=== PATIENT | male | born 1960 ===

== ENCOUNTER 2020-06-19 06:25 | Outpatient (REF) | payer MEDICARE, MEDICAID, SELFPAY ==
[2020-06-19 07:38] LABS: Cholesterol 197 mg/dL; HDL Cholesterol 57 mg/dL; LDL Cholesterol Calculated 111 mg/dl; Triglycerides 146 mg/dL
== END 2020-06-19 06:26 | disposition home or self-care (01) ==
LOC: HO.LAB 06:25
PROVIDERS: Visit Provider Internal Medicine
DX: I10 Essential (primary) hypertension (principal)
CPT/HCPCS: 80061

== ENCOUNTER 2022-08-10 07:39 | Outpatient (REF) | payer OTHER, SELFPAY ==
[2022-08-10 07:53] LABS: MANUAL DIFF FLAG NO
[2022-08-10 08:40] LABS: Alanine Aminotransferase 33 U/L (0-40); Albumin Level 4.6 g/dL (3.5-5.0); Alkaline Phosphatase 99 U/L (39-117); Anion Gap 15 (12-20); Aspartate Amino Transferase 21 U/L (5-37); Bilirubin Total 0.8 mg/dL (0.0-1.0); Blood Urea Nitrogen 13 mg/dL (9-16); Calcium 9.8 mg/dL (8.4-10.2); Carbon Dioxide 27 mmol/L (22-29); Chloride 104 mmol/L (96-108); Cholesterol 215 mg/dL; Estimated Glomerular Filt Rate > 60; Glucose Fasting 97 mg/dL (60-99); HDL Cholesterol 53 mg/dL; LDL Cholesterol Calculated 150 mg/dl; Potassium 4.7 mmol/L (3.3-5.1); Sodium 141 mmol/L (135-145); Total Protein 7.2 g/dL (6.5-8.0); Triglycerides 62 mg/dL
[2022-08-10 08:57] LABS: Prostate Specific Antigen Scr 0.53 ng/mL (<0.05-4.0)
[2022-08-10 09:50] LABS: Basophils Absolute Auto 0.1 X10*3/uL (0.0-0.2); Basophils Percent Auto 0.9 % (0-2); Eosinophils Absolute Auto 0.2 X10*3/uL (0.0-0.4); Eosinophils Percent Auto 2.1 % (0-4); Hematocrit 48.4 % (42.0-52.0); Hemoglobin 16.7 g/dl (14.0-18.0); Imm Gran Abs Auto 0.04 X10*3/uL (0.00-0.03); Imm Gran Pct Auto 0.5 % (0.0-0.4); Lymphocytes Absolute Auto 1.7 X10*3/uL (1.2-4.9); Lymphocytes Percent Auto 19.4 % (20-40); Mean Corpuscular HGB Conc 34.5 g/dl (31.0-36.0); Mean Corpuscular Hemoglobin 31.9 pg (27.0-33.0); Mean Corpuscular Volume 92.4 fL (80.0-98.0); Mean Platelet Volume 10.8 fL (9.4-12.4); Monocytes Absolute Auto 0.7 X10*3/uL (0.1-1.2); Monocytes Percent Auto 8.1 % (2-11); Platelet Count 245 X10*3/uL (160-400); Red Blood Count 5.24 X10*6/uL (4.60-5.80); Red Cell Distribution Width 12.9 % (11.0-16.0); White Blood Count 8.7 X10*3/uL (4.8-10.8)
== END 2022-08-10 07:40 | disposition home or self-care (01) ==
LOC: HO.LAB 07:39
PROVIDERS: PCP Internal Medicine; Visit Provider Internal Medicine
DX: Z00.00 Encounter for general adult medical examination without abnormal findings (principal); E78.5 Hyperlipidemia, unspecified; I10 Essential (primary) hypertension; Z13.0 Encounter for screening for diseases of the blood and blood-forming organs and certain disorders involving the immune mechanism; Z12.5 Encounter for screening for malignant neoplasm of prostate
CPT/HCPCS: 36415; 80053; 80061; 84153; 85025

== ENCOUNTER 2022-12-05 13:14 | Outpatient (REF) | payer OTHER, SELFPAY ==
--- NOTE | ~2022-12-05 | XR_ITS ---
EXAMINATION: XR SHOULDER, LEFT CLINICAL INFORMATION: Left shoulder pain COMPARISON: 06/07/2010 TECHNIQUE: AP external rotation, Grashey, scapular Y, and axillary views of the left shoulder. FINDINGS: There are degenerative changes in the left acromioclavicular joint and mild irregularity of the left glenohumeral joint soft tissues unremarkable. There is no fracture or subluxation seen. XR/XR shoulder LT min 2V IMPRESSION: Mild degenerative changes in the left acromioclavicular joint and glenohumeral joint.
--- NOTE | ~2022-12-05 | XR_ITS ---
EXAMINATION: XR SHOULDER, RIGHT CLINICAL INFORMATION: Pain in right shoulder COMPARISON: 12/06/2016 TECHNIQUE: AP external rotation, Grashey, scapular Y, and axillary views of the right shoulder. FINDINGS: There is narrowing and asymmetry of the right glenohumeral joint with soft tissue calcifications adjacent to the greater tuberosity most likely calcific tendinopathy. There is faint calcification of CPPD arthropathy. There is spurring of the right humerus. 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
== END 2022-12-05 13:15 | disposition home or self-care (01) ==
LOC: HO.XRAY 13:14
PROVIDERS: PCP Internal Medicine; Visit Provider Internal Medicine
DX: M25.511 Pain in right shoulder (principal); M25.512 Pain in left shoulder
CPT/HCPCS: 73030

== ENCOUNTER 2022-12-25 11:19 | Emergency (ER) | payer OTHER, SELFPAY ==
--- NOTE | ~2022-12-25 | XR_ITS ---
EXAMINATION: XR CHEST CLINICAL INFORMATION: Lateral chest pain COMPARISON: None available. TECHNIQUE: 2 views of the chest were obtained. FINDINGS: The cardiac silhouette is normal. There is mild diffuse bronchial wall thickening. There are no areas of consolidation. There are no pleural effusions or pneumothoraces. The bones and soft tissues are unremarkable for the patient's age. XR/XR chest 2V IMPRESSION: Bronchial wall thickening may be infectious and/or inflammatory in etiology.
--- NOTE | ~2022-12-25 | XR_ITS ---
EXAMINATION: XR RIBS, LEFT CLINICAL INFORMATION: Left posterior lateral pain COMPARISON: Chest x-ray on 12/25/2022 TECHNIQUE: 3 views of the left ribs were obtained. FINDINGS: Mild bronchial wall thickening. No consolidation, pneumothorax, or pleural effusion. The cardiomediastinal silhouette and pulmonary vasculature are normal. Osseous structures are unremarkable. Ribs are intact. No fractures are identified. XR/XR ribs LT 2V IMPRESSION: No osseous abnormality.
[2022-12-25 11:41] VITALS: BP 137/80; PULSE 68; RESP 16; TEMP 36.4; O2SAT 97; BMI 30.8
--- NOTE | 2022-12-25 11:41 | ED.GENADULT ---
HPI - General Adult General Chief complaint: Back Pain/Injury Stated complaint: left side pain Time Seen by Provider: 12/25/22 12:02 History of Present Illness HPI narrative: patient complains of pain in his left mid back radiating to left rib area that is worse with movement when he twisted wrong while taking a shower and felt sharp pain that is relieved by not moving and is worse when he twists or stands up or changes position or takes a deep breath He has no other chest pain no shortness of breath no fainting or feeling faint no palpitations no abdominal pain no dysuria, no recent illness no cough no sputum no nausea vomiting or diarrhea Related Data Home Medications Medication Instructions Recorded Confirmed famotidine 20 mg tablet (Pepcid) 20 mg PO DAILY 07/26/21 11/23/22 omega-3 fatty acids 1,000 mg 1,000 mg PO DAILY 07/26/21 11/23/22 capsule Previous Rx's Medication Instructions Recorded naproxen 250 mg tablet 250 mg PO BID PRN pain #90 tabs 09/14/20 cyclobenzaprine 10 mg tablet 10 mg PO TID PRN muscle spasm #30 07/26/21 tabs naproxen 500 mg tablet (Naprosyn) 500 mg PO BID PRN pain #30 tabs 07/26/21 lisinopril 10 mg tablet 10 mg PO DAILY #90 tabs 02/28/22 amitriptyline 50 mg tablet 50 mg PO DAILY #60 tabs 08/19/22 gabapentin 100 mg capsule 100 mg PO TID #90 caps 08/19/22 atorvastatin 20 mg tablet 20 mg PO DAILY #90 tabs 11/11/22 acetaminophen 500 mg tablet 1,000 mg PO QID PRN pain #30 tabs 12/25/22 cyclobenzaprine 5 mg tablet 5 mg PO TID PRN muscle spasm #14 12/25/22 tabs oxycodone 5 mg tablet 5 mg PO Q6H PRN pain #14 tabs 12/25/22 Allergies Allergy/AdvReac Type Severity Reaction Status Date / Time morphine [MORPHINE] Allergy Severe HIVES, rash Verified 11/23/22 08:34 [facility] Past Medical History Source: nursing notes reviewed Medical History (Updated 12/25/22 @ 14:15 by RYAN Mcclain) Hyperlipidemia Surgical History History of hip replacement History of surgery Family History Family History Father Diabetes Mother Diabetes Social History Social History Housing: Apartment Alcohol intake: current Alcohol intake frequency: a few times a week Alcohol type: beer and wine Patient Tobacco Use Status: Never used Tobacco Smoked in Last 30 Days: Yes e-Cigarette/Vaping Use: Never Used Second Hand Smoke Exposure: No Use of substances other than those prescribed or required for medical reasons: Yes Substance Use Type: Marijuana Substance Use Frequency: Daily Advance Directives: No Advance Directives Information Provided: Yes service: No Current occupational status: disabled Cognitive needs: Yes (cane) Hearing needs: No Vision needs: Yes (glasses) Physical Exam ED Vital Signs: Vital Signs - 24 hr 12/25/22 11:41 12/25/22 14:00 Temperature 97.5 F 97.8 F Pulse Rate 68 58 Respiratory Rate 16 18 Blood Pressure 137/80 137/68 Pulse Oximetry 97 100 Oxygen Delivery Method Room Air Room Air BMI result Body Mass Index 30.8 general appearance no distress comfortable appearing Head is normocephalic atraumatic Neck is supple and nontender The chest is clear to auscultation bilateral with full symmetric equal lung sounds no adventitious sounds The chest wall is nontender Heart no murmur Abdomen is soft nontender The back there is left mid paraspinal soft tissue tenderness as well as left posterior and lateral rib tenderness, pain is easily reproduced with movement and relieved by finding a comfortable position Skin of the back is normal, no focal bony tenderness over the spine Neuro gait and balance are normal, motor is 5/5 x4 and sensation is intact and symmetric Course Course Course Narrative: This is an RME: Additional HPI, ROS, PE not included below will be deferred to primary provider. Patient is a 62-year-old male who presents emergency department for evaluation of pain. States that 7 days ago while bathing he was reaching to cleanse himself, he developed pain to left lateral chest wall that radiates into the front. Pain has been constant since then. Made worse with breathing and movement. He is prescribed naproxen and gabapentin for his arthritis, this has not helped with his pain. Denies any precipitating injury or fall. Denies anterior chest pain, difficulty breathing, dizziness, lightheadedness, abdominal pain. Denies fevers chills or URI symptoms. patient with reproducible musculoskeletal left mid back pain radiating to the ribs that is easily reproduced with movement, has been present for 1 week, there is no pain when he is in a comfortable position but pain comes on only with certain movements and is easily reproducible Chest x-ray and left rib x-ray were negative and patient is treated for likely muscle strain with analgesics and muscle relaxer He is discharged home well-appearing ambulating easily Discharge Plan Discharge Clinical Impression: Muscle strain of left upper back Patient Disposition: Home, Self-Care Additional Instructions: x-ray of your chest and ribs did not show a fracture or any evidence of lung injury This is most likely painful muscle strain so we are treating with analgesics and muscle relaxer Follow closely with primary doctor for referral for physical therapy and any further evaluation Return to the ER any time for chest pain difficulty breathing fainting or feeling faint , abdominal pain, any worse condition or concerns Prescriptions: New acetaminophen 500 mg tablet 1,000 mg PO QID PRN (Reason: pain) Qty: 30 0RF oxycodone 5 mg tablet 5 mg PO Q6H PRN (Reason: pain) Qty: 14 0RF Rx Instructions: Partial Fill upon patient request. cyclobenzaprine 5 mg tablet 5 mg PO TID PRN (Reason: muscle spasm) Qty: 14 0RF No Action naproxen 250 mg tablet 250 mg PO BID PRN (Reason: pain) Qty: 90 8RF lisinopril 10 mg tablet 10 mg PO DAILY Qty: 90 8RF atorvastatin 20 mg tablet 20 mg PO DAILY Qty: 90 8RF omega-3 fatty acids 1,000 mg capsule 1,000 mg PO DAILY famotidine [Pepcid] 20 mg tablet 20 mg PO DAILY naproxen [Naprosyn] 500 mg tablet 500 mg PO BID PRN (Reason: pain) Qty: 30 0RF cyclobenzaprine 10 mg tablet 10 mg PO TID PRN (Reason: muscle spasm) Qty: 30 2RF amitriptyline 50 mg tablet 50 mg PO DAILY Qty: 60 8RF gabapentin 100 mg capsule 100 mg PO TID Qty: 90 3RF
[2022-12-25 14:00] VITALS: BP 137/68; PULSE 58; RESP 18; TEMP 36.6; O2SAT 100
== END 2022-12-25 14:24 | disposition home or self-care (01) ==
PROVIDERS: Emergency Provider Emergency Medicine; PCP Internal Medicine
DX: M54.50 Low back pain, unspecified (principal); R07.81 Pleurodynia; Z79.899 Other long term (current) drug therapy
CPT/HCPCS: 71046; 71100; 99284

== ENCOUNTER 2023-01-13 07:25 | Outpatient (REF) | payer OTHER, SELFPAY ==
[2023-01-13 08:27] LABS: Cholesterol 217 mg/dL; HDL Cholesterol 67 mg/dL; LDL Cholesterol Calculated 128 mg/dl; Triglycerides 114 mg/dL
== END 2023-01-13 07:26 | disposition home or self-care (01) ==
LOC: HO.LAB 07:25
PROVIDERS: PCP Internal Medicine; Visit Provider Internal Medicine
DX: E78.5 Hyperlipidemia, unspecified (principal)
CPT/HCPCS: 36415; 80061

== ENCOUNTER 2023-02-08 08:26 | Outpatient (AMB) | payer OTHER, MEDICAID, SELFPAY ==
--- NOTE | 2023-02-08 08:40 | MHC.PC.OV ---
Vital Signs 02/08/23 08:41 Height 5 ft 6 in Weight 184 lb 6 oz BMI 29.8 BP 140/80 H Blood Pressure Location Lt brachial Position Sitting Pulse 68 Pulse Source Pulse Oximeter Pulse Oximetry (%) 98 Oxygen Delivery Method Room Air Intake Visit Reasons: 3 month follow up HTN Intake Note: Patient is here to follow up on HTN. Gleason Gear Generator Required: No It Software Engineer: Not Required per policy Accompanied by: Self / Same As Patient Allergies morphine [MORPHINE] Allergy (Severe, Verified 02/08/23 08:41) HIVES, rash Medication List - Last Reconciled 02/08/23 by Ivan Biggs MD acetaminophen 1,000 mg (2 x 500 mg) PO QID PRN amitriptyline 50 mg PO DAILY atorvastatin 20 mg PO DAILY famotidine (Pepcid) 20 mg PO DAILY gabapentin 100 mg PO TID lisinopril 10 mg PO DAILY naproxen 250 mg PO BID PRN Tobacco use date assessed: 02/08/23 Dental Screening Dental Screen Date: 02/08/23 Did you have a dental visit in the last 12 months?: No Did you have a dental problem in the last 6 months where you did not have access to dental care?: No Was dental information given to patient?: No HPI 3 month follow up HTN HPI Details HTN hyperlipidemia and chronic pain syndrome; stable on rx; compliant [facility] Medical History (Updated 02/08/23 @ 09:14 by Ivan Biggs MD) Hyperlipidemia Surgical History History of hip replacement History of surgery Family History Father Diabetes Mother Diabetes Social History Housing: Apartment Alcohol intake: current Alcohol intake frequency: a few times a week Alcohol type: beer and wine Patient Tobacco Use Status: Never used Tobacco e-Cigarette/Vaping Use: Never Used Second Hand Smoke Exposure: No Substance Use Type: Marijuana service: No Current occupational status: disabled Cognitive needs: Yes (cane) Hearing needs: No Vision needs: Yes (glasses) Questionnaire Thrive Questionnaire Date Thrive assessed: 08/19/22 ALISSON-7 AMB Questionnaire ALISSON-7 Date ALISSON - 7 assessed: 08/19/22 Source: Developed by Drs. Martín Castro, Swapna Sinclair, Dougie Flores and colleagues, with an educational luis from [employer]. Review of Systems Const Denies chills, Denies headache(s) and Denies weight loss ENT Denies headache(s) Card Denies chest pain, Denies syncope, Denies irregular heart rhythm and Denies dyspnea Resp Denies chest congestion, Denies cough and Denies dyspnea GI Denies abdominal pain, Denies change in stool character, Denies nausea and Denies vomiting Musc Denies deformity and Denies joint swelling Neuro Denies syncope and Denies headache(s) Physical exam (Primary Care) Vital Signs: Last Vital Signs Pulse 68 02/08/23 08:41 BP 140/80 H 02/08/23 08:41 Pulse Ox 98 02/08/23 08:41 Oxygen Delivery Method Room Air 02/08/23 08:41 BMI result Body Mass Index 29.8 Tobacco/Smoking Status: Tobacco use Status Tobacco use date assessed 02/08/23 02/08/23 08:47 Patient Tobacco Use Status Never used Tobacco 02/08/23 08:47 e-Cigarette/Vaping Use Never Used 02/08/23 08:47 Thrive Assessment: Date of Thrive Assessment Date Thrive assessed 08/19/22 02/08/23 08:47 Const General: cooperative, comfortable and no acute distress Resp Effort & Inspection: normal respiratory effort Auscultation: clear to auscultation bilaterally Percussion: percussion normal Cardio Jugular venous distension: no JVD Rate: regular rate Rhythm: regular rhythm GI Inspection: Yes normal to inspection Assessment and Plan Assessment & Plan (1) Hypertension: Code(s): I10 - Essential (primary) hypertension Plan: stable; smae rx (2) Hyperlipidemia: Code(s): E78.5 - Hyperlipidemia, unspecified Plan: stable; same rx (3) Chronic idiopathic pain syndrome: Code(s): G89.29 - Other chronic pain Plan: increase gabapentin Orders: Orders Comprehensive [place]. Panel Fast Today N28.9 - Disorder of kidney and ureter, unspecified Lipid Panel Today E78.5 - Hyperlipidemia, unspecified Complete Blood Count Auto Diff Today D64.9 - Anemia, unspecified Medications: New gabapentin 300 mg PO TID 90 caps 3RF Refilled acetaminophen 1,000 mg (2 x 500 mg) PO QID PRN 30 tabs 0RF pain lisinopril 10 mg PO DAILY 90 tabs 8RF naproxen 250 mg PO BID PRN 90 tabs 8RF pain Discontinued gabapentin Discontinued Reason: Doctor's Order 100 mg PO TID 90 caps 3RF Coding Level of Care Code Est Pt Level 4 (62447) Diagnoses Hypertension I10 Hyperlipidemia E78.5 Chronic idiopathic pain syndrome G89.29
[2023-02-08 08:41] VITALS: BP 140/80; PULSE 68; O2SAT 98; BMI 29.8
== END 2023-02-08 09:22 | disposition home or self-care (01) ==
PROVIDERS: PCP Internal Medicine; Visit Provider Internal Medicine
DX: I10 Essential (primary) hypertension (principal); E78.5 Hyperlipidemia, unspecified; G89.29 Other chronic pain
CPT/HCPCS: 99214

== ENCOUNTER 2023-05-11 08:42 | Outpatient (AMB) | payer OTHER, MEDICAID, SELFPAY ==
[2023-05-11 08:44] VITALS: BP 132/68; PULSE 85; O2SAT 98; BMI 30.2
--- NOTE | 2023-05-11 08:44 | A.OFFPC_ITS ---
Vital Signs 05/11/23 08:44 Height 5 ft 6 in Weight 187 lb BMI 30.2 BP 132/68 Blood Pressure Location Lt brachial Position Sitting Pulse 85 Pulse Source Pulse Oximeter Pulse Oximetry (%) 98 Oxygen Delivery Method Room Air Intake Visit Reasons: Annual exam Heating Engineer Required: No Director Of Business Development: Not Required per policy Accompanied by: Self / Same As Patient Allergies morphine [MORPHINE] Allergy (Severe, Verified 05/11/23 08:45) HIVES, rash Medication List - Last Reconciled 05/11/23 by Ivan Biggs MD amitriptyline 50 mg PO DAILY atorvastatin 20 mg PO DAILY famotidine (Pepcid) 20 mg PO DAILY gabapentin 300 mg PO TID lisinopril 10 mg PO DAILY naproxen 250 mg PO BID PRN Tobacco use date assessed: 02/08/23 Dental Screening Dental Screen Date: 05/11/23 Did you have a dental visit in the last 12 months?: No Did you have a dental problem in the last 6 months where you did not have access to dental care?: No Was dental information given to patient?: Patient has dentist HPI Annual exam HPI Details HTN hyperlipidemia and chronic back pain; doing well on rx PFSH Medical History Hyperlipidemia Surgical History History of hip replacement History of surgery Family History Father Diabetes Mother Diabetes Social History Housing: Apartment Alcohol intake: current Alcohol intake frequency: a few times a week Alcohol type: beer and wine Patient Tobacco Use Status: Never used Tobacco e-Cigarette/Vaping Use: Never Used Second Hand Smoke Exposure: No Substance Use Type: Marijuana service: No Current occupational status: disabled Cognitive needs: Yes (cane) Hearing needs: No Vision needs: Yes (glasses) Questionnaire PHQ-9 Over the last 2 weeks, how often have you been bothered by any of the following problems? 1. Little interest or pleasure in doing things: several days 2. Feeling down, depressed, or hopeless: several days 3. Trouble falling or staying asleep, or sleeping too much: several days 4. Feeling tired or having little energy: several days 5. Poor appetite or overeating: not at all 6. Feeling bad about yourself - or that you are a failure or have let yourself or your family down: not at all 7. Trouble concentrating on things, such as reading the newspaper or watching television: not at all 8. Moving or speaking so slowly that other people could have noticed. Or the opposite - being so fidgety or restless that you have been moving around a lot more than usual: not at all 9. Thoughts that you would be better off or of hurting yourself in some way: not at all Total score: 4 Depression Screening Interpretation: Positive Depression Screening Follow-up: Existing condition Depression Screening Done: Yes [id number] - PHQ-9 Billing: Yes Source: Developed by Drs. Martín Castro, Swapna Sinclair, Dougei Flores and colleagues, with an educational lius from [employer]. Thrive Questionnaire Date Thrive assessed: 08/19/22 AUDIT C Alcohol Use Questionnaire (AUDIT-C) 1. How often do you have a drink containing alcohol?: Never Total Score: 0 Score Reviewed/Action Taken: Yes ALISSON-7 AMB Questionnaire ALISSON-7 Date ALISSON - 7 assessed: 08/19/22 Source: Developed by Drs. Martín Castro, Swapna Sinclair, Dougie Flores and colleagues, with an educational luis from [employer]. Review of Systems Const Denies chills, Denies fatigue, Denies headache(s) and Denies weight loss Eyes Denies change in vision, Denies diplopia and Denies eye pain ENT Denies vertigo, Denies dizziness, Denies headache(s) and Denies nasal discharge Card Denies chest pain, Denies rapid heart rate and Denies dyspnea on exertion Resp Denies chest congestion, Denies cough, Denies pain with cough and Denies dyspnea on exertion GI Denies abdominal pain, Denies hematochezia and Denies change in bowel habits Musc Denies myalgias, Denies arthralgias and Denies joint swelling Skin/Breast Denies lesions and Denies unusual bruising Neuro Denies vertigo, Denies dizziness, Denies headache(s) and Denies focal weakness Endo Denies fatigue Physical exam (Primary Care) Vital Signs: Last Vital Signs Pulse 85 05/11/23 08:44 BP 132/68 05/11/23 08:44 Pulse Ox 98 05/11/23 08:44 Oxygen Delivery Method Room Air 05/11/23 08:44 BMI result Body Mass Index 30.2 Tobacco/Smoking Status: Tobacco use Status Tobacco use date assessed 02/08/23 05/11/23 08:45 Patient Tobacco Use Status Never used Tobacco 05/11/23 08:45 e-Cigarette/Vaping Use Never Used 05/11/23 08:45 PHQ-9: PHQ-9 Score PHQ-9: Total score 4 05/11/23 09:09 Depression Screening Interpretation: Positive Depression Screening Follow-up: Existing condition Thrive Assessment: Date of Thrive Assessment Date Thrive assessed 08/19/22 05/11/23 08:45 Const General: cooperative, healthy appearing and no acute distress Orientation/consciousness: oriented to person, oriented to place and oriented to time HENMT Head: Yes normal to inspection, Yes normocephalic and Yes atraumatic Mouth: Normal oral and palatal mucosa present and tongue normal Throat: Yes posterior oropharynx normal and Yes uvula midline Eyes General: appearance normal, both eyes and all related structures Neck Neck: Yes normal visual inspection, Yes full ROM and Yes no lymphadenopathy Thyroid: Thyroid normal Carotids: normal carotid upstroke Chest Chest palpation & inspection: normal inspection of the chest Resp Effort & Inspection: normal respiratory effort and able to speak in complete sentences Auscultation: clear to auscultation bilaterally Cardio Jugular venous distension: no JVD Palpation: normal PMI Rate: regular rate Rhythm: regular rhythm Heart sounds: S1 normal heart sound present and S2 normal heart sound present GI Inspection: Yes normal to inspection Palpation (GI): Soft to palpation and No hepatosplenomegaly present Auscultation: normal bowel sounds General: Yes no CVA tenderness Back/Spine/Pelvis Back: no CVA tenderness Skin General skin exam: no rashes or lesions noted Neuro General: oriented to person, oriented to place and oriented to time Extrem General: Yes normal to inspection and Yes full ROM Office Procedures Flu Questionnaire Does the patient have a severe egg allergy?: No Does the patient have severe life threatening allergies?: No Does the patient have a fever or illness today?: No Has the patient ever had Guillain-[place] Syndrome?: No Has the patient ever had any past reaction to a flu shot?: No Immunizations flu vacc [id number] 6mos up(PF) 60 mcg(15 mcgx4)/0.5 mL IM syringe Performing Provider: Ivan Biggs MD [facility] Administered by: LAURA Cabrales on 05/11/23 09:12 Dose Route Admin Location Dispensed Lot Number Expiration Date NDC Quality Review Trainer 0.5 mL IM Right Deltoid 0.5 mL [id number] 12/31/23 [id number] [email or web address] VIS Given Date VIS Provided VIS Publication Date 05/11/23 Single Vaccine 21 Eligibility Eligibility Date Funding Source Not [facility] Eligible 05/11/23 Private Assessment and Plan Assessment & Plan (1) Physical exam: Code(s): Z00.00 - Encounter for general adult medical examination without abnormal findings Plan: labs; colonoscopy (2) Hyperlipidemia: Code(s): E78.5 - Hyperlipidemia, unspecified Plan: stable; same rx (3) Hypertension: Code(s): I10 - Essential (primary) hypertension Plan: stable; same rx (4) Chronic idiopathic pain syndrome: Code(s): G89.29 - Other chronic pain Plan: stable; same rx Orders: Orders Influenza [id number] Immunization Today Z23 - Encounter for immunization Complete Blood Count Auto Diff Today D64.9 - Anemia, unspecified Prostate Specific Antigen Scr Today Z00.00 - Encounter for general adult medical examination without abnormal findings Lipid Panel Today E78.5 - Hyperlipidemia, unspecified Comprehensive [place]. Panel Fast Today N28.9 - Disorder of kidney and ureter, unspecified Referrals Gastroenterology Referral Z12.11 - Encounter for screening for malignant neoplasm of colon Coding Level of Care Code Est Pt Prev Care 40-64y(86173) Diagnoses Physical exam Z00.00 Hyperlipidemia E78.5 Hypertension I10 Chronic idiopathic pain syndrome G89.29
== END 2023-05-11 09:14 | disposition home or self-care (01) ==
PROVIDERS: Visit Provider Internal Medicine
DX: Z00.00 Encounter for general adult medical examination without abnormal findings (principal); E78.5 Hyperlipidemia, unspecified; I10 Essential (primary) hypertension; G89.29 Other chronic pain; Z23 Encounter for immunization
CPT/HCPCS: 90471; 90686; 99396

== ENCOUNTER 2023-09-18 10:16 | Outpatient (AMB) | payer MEDICARE, SELFPAY ==
[2023-09-18 10:26] VITALS: BP 136/70; PULSE 72; O2SAT 99; BMI 31.6
--- NOTE | 2023-09-18 10:26 | A.OFFPC_ITS ---
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: Not Required per policy Accompanied by: Self / Same As Patient Allergies morphine [MORPHINE] Allergy (Severe, Verified 09/18/23 10:27) HIVES, rash Medication List - Last Reconciled 09/19/23 by Ivan Biggs MD amitriptyline 50 mg PO DAILY atorvastatin 20 mg PO DAILY famotidine (Pepcid) 20 mg PO DAILY gabapentin 300 mg PO TID lisinopril 10 mg PO DAILY naproxen 250 mg PO BID PRN Tobacco use date assessed: 09/18/23 Dental Screening Dental Screen Date: 09/18/23 Did you have a dental visit in the last 12 months?: Yes Did you have a dental problem in the last 6 months where you did not have access to dental care?: No Was dental information given to patient?: Patient has dentist HPI 6 month F/U HPI Details HTN and hyperlip on rx; compliant [facility] Medical History Hyperlipidemia Surgical History History of hip replacement History of surgery Family History Father Diabetes Mother Diabetes Social History Housing: Apartment Alcohol intake: current Alcohol intake frequency: a few times a week Alcohol type: beer and wine Patient Tobacco Use Status: Never used Tobacco e-Cigarette/Vaping Use: Never Used Second Hand Smoke Exposure: No Substance Use Type: Marijuana service: No Current occupational status: disabled Cognitive needs: Yes (cane) Hearing needs: No Vision needs: Yes (glasses) Questionnaire PHQ-9 Over the last 2 weeks, how often have you been bothered by any of the following problems? 1. Little interest or pleasure in doing things: several days 2. Feeling down, depressed, or hopeless: several days 3. Trouble falling or staying asleep, or sleeping too much: several days 4. Feeling tired or having little energy: several days 5. Poor appetite or overeating: not at all 6. Feeling bad about yourself - or that you are a failure or have let yourself or your family down: not at all 7. Trouble concentrating on things, such as reading the newspaper or watching television: not at all 8. Moving or speaking so slowly that other people could have noticed. Or the opposite - being so fidgety or restless that you have been moving around a lot more than usual: not at all 9. Thoughts that you would be better off or of hurting yourself in some way: not at all Total score: 4 Depression Screening Interpretation: Positive Depression Screening Follow-up: Existing condition Depression Screening Done: Yes 97667 - PHQ-9 Billing: Yes Source: Developed by Drs. Martín Castro, Swapna Sinclair, Dougie Flores and colleagues, with an educational luis from [employer]. Thrive Questionnaire Date Thrive assessed: 09/18/23 I am a: Patient What is your living situation today?: I have a steady place to live Within the past 12 months, did the food you bought not last and you didn't have the money to get more?: Never true Within the past 12 months, did you worry whether your food would run out before you got money to buy more?: Never true Do you have trouble paying for medicines?: No Do you have trouble getting transportation to medical appointments?: No Do you have trouble paying your heating and electricity bill?: No Do you have trouble taking care of your child, family member or friend?: No Do you have trouble with day-to-day activities such as bathing, preparing meals, shopping, managing finances, etc.?: No Are you currently unemployed and looking for a job?: No Are you interested in more education?: No Please select the resources that you would like help with: None THRIVE Score: 0 AUDIT C Alcohol Use Questionnaire (AUDIT-C) 1. How often do you have a drink containing alcohol?: Never Total Score: 0 Score Reviewed/Action Taken: Yes ALISSON-7 AMB Questionnaire ALISSON-7 Date ALISSON - 7 assessed: 09/18/23 Feeling nervous, anxious, or on edge: 0 = Not at all Not being able to stop or control worryin = Not at all Worrying too much about different things: 0 = Not at all Trouble relaxin = Not at all Being so restless that it is hard to sit still: 0 = Not at all Becoming easily annoyed or irritable: 0 = Not at all Feeling afraid as if something awful might happen: 0 = Not at all Total ALISSON-7 score (0-4 normal; 5-9 mild; 10-14 moderate; 15-21 severe): 0 Source: Developed by Drs. Martín Castro, Swapna Sinclair, Dougie Flores and colleagues, with an educational luis from [employer]. ALISSON-7 Assessment Billing ALISSON-7 Assessment Tool: ALISSON-7 Assessment 09653 Review of Systems Const Denies chills, Denies headache(s) and Denies weight loss ENT Denies headache(s) Card Denies chest pain, Denies syncope, Denies irregular heart rhythm and Denies dyspnea Resp Denies chest congestion, Denies cough and Denies dyspnea GI Denies abdominal pain, Denies change in stool character, Denies nausea and Denies vomiting Musc Denies deformity and Denies joint swelling Neuro Denies syncope and Denies headache(s) Physical exam (Primary Care) Vital Signs: Last Vital Signs Pulse 72 09/18/23 10:26 BP 136/70 09/18/23 10:26 Pulse Ox 99 09/18/23 10:26 Oxygen Delivery Method Room Air 09/18/23 10:26 BMI result Body Mass Index 31.6 Tobacco/Smoking Status: Tobacco use Status Tobacco use date assessed 09/18/23 09/18/23 10:28 Patient Tobacco Use Status Never used Tobacco 09/18/23 10:28 e-Cigarette/Vaping Use Never Used 09/18/23 10:28 PHQ-9: PHQ-9 Score PHQ-9: Total score 4 09/18/23 10:28 Depression Screening Interpretation: Positive Depression Screening Follow-up: Existing condition Thrive Assessment: Date of Thrive Assessment Date Thrive assessed 09/18/23 09/18/23 10:28 Const General: cooperative, comfortable, no acute distress and alert Neck Neck: Yes no lymphadenopathy Thyroid: Thyroid normal Resp Effort & Inspection: normal respiratory effort Auscultation: clear to auscultation bilaterally Percussion: percussion normal Cardio Jugular venous distension: no JVD Palpation: normal PMI Rate: regular rate Rhythm: regular rhythm Heart sounds: S1 normal heart sound present and S2 normal heart sound present GI Inspection: Yes normal to inspection Palpation (GI): No hepatosplenomegaly present Skin General skin exam: no rashes or lesions noted Extrem General: Yes no clubbing, cyanosis or edema Assessment and Plan Assessment & Plan (1) Hypertension: Code(s): I10 - Essential (primary) hypertension Plan: stable; same rx (2) Hyperlipidemia: Code(s): E78.5 - Hyperlipidemia, unspecified Plan: stable; same rx Medications: Refilled gabapentin 300 mg PO TID 90 caps 3RF naproxen 250 mg PO BID PRN 90 tabs 8RF pain amitriptyline 50 mg PO DAILY 60 tabs 8RF Coding Level of Care Code Est Pt Level 3 (49465) Diagnoses Hypertension I10 Hyperlipidemia E78.5 Additional Codes ALISSON-7 Assessment Billing - ALISSON-7 Assessment Tool: ALISSON-7 Assessment 45087 ([id number])
== END 2023-09-18 10:41 | disposition home or self-care (01) ==
PROVIDERS: PCP Internal Medicine; Visit Provider Internal Medicine
DX: I10 Essential (primary) hypertension (principal); E78.5 Hyperlipidemia, unspecified
CPT/HCPCS: 99214

== ENCOUNTER 2023-12-27 07:34 | Outpatient (REF) | payer MEDICARE, MEDICAID, SELFPAY ==
[2023-12-27 07:49] LABS: MANUAL DIFF FLAG NO
[2023-12-27 08:15] LABS: Basophils Percent Auto 0.4 % (0-2); Eosinophils Absolute Auto 0.1 X10*3/uL (0.0-0.4); Eosinophils Percent Auto 0.8 % (0-4); Hematocrit 47.2 % (42.0-52.0); Hemoglobin 15.7 g/dl (14.0-18.0); Imm Gran Abs Auto 0.04 X10*3/uL (0.00-0.03); Imm Gran Pct Auto 0.4 % (0.0-0.4); Lymphocytes Absolute Auto 1.9 X10*3/uL (1.2-4.9); Lymphocytes Percent Auto 19.3 % (20-40); Mean Corpuscular HGB Conc 33.3 g/dl (31.0-36.0); Mean Corpuscular Hemoglobin 31.2 pg (27.0-33.0); Mean Corpuscular Volume 93.8 fL (80.0-98.0); Mean Platelet Volume 10.9 fL (9.4-12.4); Monocytes Absolute Auto 0.9 X10*3/uL (0.1-1.2); Monocytes Percent Auto 8.9 % (2-11); Neutrophils Absolute Auto 7.1 x10*3/uL (2.0-8.3); Neutrophils Percent Auto 70.2 % (45-73); Platelet Count 248 X10*3/uL (160-400); Red Blood Count 5.03 X10*6/uL (4.60-5.80); Red Cell Distribution Width 13.3 % (11.0-16.0)
[2023-12-27 08:42] LABS: Alanine Aminotransferase 32 U/L (0-40); Albumin Level 4.6 g/dL (3.5-5.0); Alkaline Phosphatase 124 U/L (39-117); Anion Gap 15 (12-20); Aspartate Amino Transferase 21 U/L (5-37); Bilirubin Total 1.1 mg/dL (0.0-1.0); Blood Urea Nitrogen 15 mg/dL (9-16); Calcium 9.9 mg/dL (8.4-10.2); Carbon Dioxide 30 mmol/L (22-29); Chloride 102 mmol/L (96-108); Cholesterol 197 mg/dL (<200); Estimated Glomerular Filt Rate > 60; Glucose Fasting 105 mg/dL (60-99); HDL Cholesterol 49 mg/dL (>40); LDL Cholesterol Calculated 134 mg/dL (<100); Potassium 4.9 mmol/L (3.3-5.1); Sodium 142 mmol/L (135-145); Total Protein 7.7 g/dL (6.5-8.0); Triglycerides 71 mg/dL (<150)
[2023-12-27 09:11] LABS: Prostate Specific Antigen Scr 0.44 ng/mL (<0.05-4.0)
== END 2023-12-27 07:35 | disposition home or self-care (01) ==
LOC: HO.LAB 07:34
PROVIDERS: PCP Internal Medicine; Visit Provider Internal Medicine
DX: Z00.00 Encounter for general adult medical examination without abnormal findings (principal); E78.5 Hyperlipidemia, unspecified; N28.9 Disorder of kidney and ureter, unspecified; D64.9 Anemia, unspecified
CPT/HCPCS: 36415; 80053; 80061; 84153; 85025

== ENCOUNTER 2024-01-01 06:24 | Day surgery (SDC) | payer MEDICARE, MEDICAID, SELFPAY ==
--- NOTE | 2023-12-29 09:17 | P.CONAN_ITS ---
Documented by User: Renetta Dunn NP 12/29/23 09:17 HPI - Anesthesia Eval Consult details Narrative: 63yo M for Colonoscopy [facility] Active Problems Active Problems: All Active Problems Chronic idiopathic pain syndrome (Acute) Hypertension (Acute) Physical exam (Acute) Shoulder pain (Acute) Hyperlipidemia (Acute) Past Medical History Medical History Hyperlipidemia Family History Family History Father Diabetes Mother Diabetes Surgical History Surgical History H/O shoulder surgery History of hip replacement History of surgery Social History Social History Housing: Apartment Alcohol intake: current Alcohol intake frequency: a few times a week Alcohol type: beer and wine Patient Tobacco Use Status: Never used Tobacco e-Cigarette/Vaping Use: Never Used Second Hand Smoke Exposure: No Substance Use Type: Marijuana service: No Current occupational status: disabled Cognitive needs: Yes (cane) Hearing needs: No Vision needs: Yes (glasses) Meds Allergies Allergy/AdvReac Type Severity Reaction Status Date / Time morphine [MORPHINE] Allergy Severe HIVES, rash Verified 01/01/24 06:50 Home Medications ?Medication ?Instructions ?Recorded ?Confirmed ?Last Taken ?Type famotidine 20 mg tablet (Pepcid) 20 mg PO DAILY 07/26/21 01/01/24 12/31/23 History Assessment and Plan Assessment Anesthesia Assessment: Chart Reviewed Documented by User: Kaila Maciel MD 01/01/24 08:22 [facility] Active Problems Active Problems: All Active Problems Chronic idiopathic pain syndrome (Acute) Hypertension (Acute) Physical exam (Acute) Shoulder pain (Acute) Hyperlipidemia (Acute) New LBBB. Patient states was told some time ago that EKG was abnormal but never followed up Chest pain- some months ago. Resolved after stopping naprosyn. Never sought care Denies CAMILO but snores Daily marijuana. Last yesterday Some nausea and vomiting yestreday with prep. None today Past Medical History Medical History Hyperlipidemia Family History Family History Father Diabetes Mother Diabetes Family history of problems with anesthesia: No Surgical History Surgical History H/O shoulder surgery History of hip replacement History of surgery History of Problems with Anesthesia: No Social History Social History Housing: Apartment Alcohol intake: current Alcohol intake frequency: a few times a week Alcohol type: beer and wine Patient Tobacco Use Status: Never used Tobacco e-Cigarette/Vaping Use: Never Used Second Hand Smoke Exposure: No Substance Use Type: Marijuana service: No Current occupational status: disabled Cognitive needs: Yes (cane) Hearing needs: No Vision needs: Yes (glasses) Meds Allergies Allergy/AdvReac Type Severity Reaction Status Date / Time morphine [MORPHINE] Allergy Severe HIVES, rash Verified 01/01/24 06:50 Home Medications ?Medication ?Instructions ?Recorded ?Confirmed ?Last Taken ?Type famotidine 20 mg tablet (Pepcid) 20 mg PO DAILY 07/26/21 01/01/24 12/31/23 History Exam Height,Weight and Vital Signs: Height 5 ft 7 in Weight 84.912 kg Vital Signs Temp Pulse Resp BP Pulse Ox O2 Del Method 01/01/24 07:02 97.3 F 85 18 149/86 H 98 Room Air Airway Mallampati Class: II TM Dist: >3cm Neck ROM: Full Loose/Missing/Broken Teeth: Yes (Many loose teeth. Some missing teeth. Denies broken) Heart: RRR Lungs: CTAB Assessment and Plan Assessment Anesthesia Assessment: Anesthesia Plan Discussed and Chart Reviewed Final Anesthetic Review Family History of Problems with Anesthesia: No History of Problems with Anesthesia: No NPO: Yes ASA Class: III Final Preanesthetic Review: No Changes in Pt Med Stat, Meds/Allgs Chart Reviewed, Consent Obtained/Reviewed and Anes Risks/Benef Reviewed Patient Risk: Intermediate Procedure Risk: Low Assessment/Block/Sedation in SS: Assess/Block/Sedation-SS Anesthetic Plan Anesthetic Plan: GA, TIVA and Other (Discussed EKG findings with patient and stressed importance of following up with PCP/Cardiology. Patient states that he will make an appointment) Disposition: Standard PACU
--- NOTE | 2024-01-01 | ECG_ITS ---
Test Reason : New LBBB Blood Pressure : / mmHG Vent. Rate : 069 BPM Atrial Rate : 069 BPM P-R Int : 198 ms QRS Dur : 186 ms QT Int : 482 ms P-R-T Axes : 034 -09 158 degrees QTc Int : 516 ms Normal sinus rhythm Possible Left atrial enlargement Non-specific intra-ventricular conduction block Left ventricular hypertrophy with repolarization abnormality ( R in aVL , Sokolow-Caceres , [place] product , Romhilt-Ramos ) Abnormal ECG When compared with ECG of 31-MAY-2011 09:38, QRS duration has increased QT has lengthened Referred By: Kaila Maciel Electronically Signed By:DELILAH FERRERA
[2024-01-01 06:43] VITALS: BMI 29.3
[2024-01-01 07:02] VITALS: BP 149/86; PULSE 85; RESP 18; TEMP 36.3; O2SAT 98
[2024-01-01] MEDS: Lactated Ringers 1,000 ML 100 ML IVCONT (07:03)
[2024-01-01 08:21] VITALS: BP 101/63; PULSE 72; RESP 16; TEMP 36.1; O2SAT 97
--- NOTE | 2024-01-01 08:22 | PM.OP ---
Brief Operative Note Date of Service: 01/01/24 Pre-op diagnosis: Screening Post-op diagnosis: other (Colon polyp) Procedure: Colonoscopy to the cecum and TI with hot snare polypectomy Surgeon: Martín Brown MD Anesthesia: MAC Was an Swimming Coach Or Instructor used for this Procedure?: No Estimated blood loss (mL): 0 Pathology: other (A. Polyp at 15cm) Condition: stable Disposition: PACU
[2024-01-01 08:36] VITALS: BP 114/71; PULSE 63; RESP 14; O2SAT 96
[2024-01-01 08:51] VITALS: BP 133/73; PULSE 73; RESP 20; TEMP 36.6; O2SAT 99
--- NOTE | 2024-01-01 09:22 | OP_ITS ---
DATE OF SERVICE: 01/01/2024 SURGEON: Martín Brown MD INDICATIONS: The patient presents for evaluation of colorectal cancer screening. Full consent was obtained from him for this, including risks of bleeding and perforation. PREOPERATIVE DIAGNOSIS: Colorectal cancer screening. POSTOPERATIVE DIAGNOSIS: PROCEDURE PERFORMED: Colonoscopy to the cecum and terminal ileum with hot snare polypectomy. ESTIMATED BLOOD LOSS: COMPLICATIONS: ANESTHESIA: Medication used; monitored anesthesia care. ASSISTANTS: SPECIMENS: POSTOPERATIVE DIAGNOSES: Colorectal cancer screening, colon polyp, diverticulosis, and internal hemorrhoids. DESCRIPTION OF PROCEDURE: The patient was placed in left lateral decubitus position. The digital rectal exam revealed some external hemorrhoids. The Olympus videopediatric colonoscope was entered into the rectum and advanced easily to the cecum. Once in the cecum, I did identify normal-appearing cecal pouch with appendiceal orifice and a normal-appearing ileocecal valve. The terminal ileum was cannulated and appeared normal. Scope was withdrawn back in the colon. The entire cecum and ileocecal valve appeared normal. The scope was slowly withdrawn assessing all mucosal surfaces carefully. Preparation was excellent. At 15 cm, was an approximately 12 mm polyp on a short stalk, which was removed by hot snare polypectomy and recovered by withdrawing it on the tip of the scope. The scope was advanced back to the polypectomy site, which appeared clean, without any sign of residual polyp nor bleeding. I did not visualize any other polyps, colitis, nor angiodysplasia. There was a mild amount of sigmoid diverticulosis. In the rectum, scope was retroflexed visualizing internal hemorrhoids, but no other pathology. The rectal mucosa appeared normal. Scope was straightened and withdrawn from the patient. He tolerated the procedure well and was returned to the recovery area in stable condition. IMPRESSION: 1. Colon polyp. 2. Diverticulosis. 3. Internal hemorrhoids. PLAN: The results of the pathology will be checked. I would recommend a repeat colonoscopy in 5 years presuming as a tubular adenoma. He was advised not to use any aspirin and NSAIDs for 1 week. MD LOBO Shipman/WILLIAM / [id number]
== END 2024-01-01 09:55 | disposition home or self-care (01) ==
PROVIDERS: PCP Internal Medicine; Visit Provider Internal Medicine
PROC: 0DJD8ZZ Inspection of Lower Intestinal Tract, Via Natural or Artificial Opening Endoscopic (ICD-10-PCS; CPT 45378; principal; 2024-01-01 07:30)
DX: Z12.11 Encounter for screening for malignant neoplasm of colon (principal); D12.7 Benign neoplasm of rectosigmoid junction; K57.30 Diverticulosis of large intestine without perforation or abscess without bleeding; K64.8 Other hemorrhoids; K64.4 Residual hemorrhoidal skin tags; I10 Essential (primary) hypertension; E78.5 Hyperlipidemia, unspecified; G89.29 Other chronic pain; Z79.899 Other long term (current) drug therapy; Z79.02 Long term (current) use of antithrombotics/antiplatelets
CPT/HCPCS: 45385; 88305; 93005; J2704

== ENCOUNTER → 2024-01-01 08:45 | Outpatient (BNV) | payer MEDICARE, MEDICAID, SELFPAY | PROVIDERS: PCP Internal Medicine; Visit Provider Internal Medicine | DX: R94.31 Abnormal electrocardiogram [ECG] [EKG] (principal) | CPT/HCPCS: 93010 ==

== ENCOUNTER 2024-01-05 11:41 | Outpatient (AMB) | payer MEDICARE, SELFPAY ==
[2024-01-05 11:46] VITALS: BP 124/70; PULSE 78; O2SAT 98; BMI 29.8
--- NOTE | 2024-01-05 11:46 | A.OFFPC_ITS ---
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 Accompanied by: Self / Same As Patient Allergies morphine [MORPHINE] Allergy (Severe, Verified 01/05/24 11:46) HIVES, rash Medication List - Last Reconciled 01/05/24 by Ivan Biggs MD amitriptyline 50 mg PO DAILY atorvastatin 20 mg PO DAILY famotidine (Pepcid) 20 mg PO DAILY gabapentin 300 mg PO TID lisinopril 10 mg PO DAILY Tobacco use date assessed: 09/18/23 Dental Screening Dental Screen Date: 09/18/23 HPI Follow Up HPI Details hyperlipidemia on rx; doing well and compliant [facility] Medical History Hyperlipidemia Surgical History H/O shoulder surgery History of hip replacement History of surgery Family History Father Diabetes Mother Diabetes Social History Housing: Apartment Alcohol intake: current Alcohol intake frequency: a few times a week Alcohol type: beer and wine Patient Tobacco Use Status: Never used Tobacco e-Cigarette/Vaping Use: Never Used Second Hand Smoke Exposure: No Substance Use Type: Marijuana service: No Current occupational status: disabled Cognitive needs: Yes (cane) Hearing needs: No Vision needs: Yes (glasses) Questionnaire Thrive Questionnaire Date Thrive assessed: 09/18/23 ALISSON-7 AMB Questionnaire ALISSON-7 Date ALISSON - 7 assessed: 09/18/23 Source: Developed by Drs. Martín Castro, Swapna Sinclair, Dougie Flores and colleagues, with an educational luis from [employer]. Review of Systems Const Denies chills, Denies headache(s) and Denies weight loss ENT Denies headache(s) Card Denies chest pain, Denies syncope, Denies irregular heart rhythm and Denies dyspnea Resp Denies chest congestion, Denies cough and Denies dyspnea GI Denies abdominal pain, Denies change in stool character, Denies nausea and Denies vomiting Musc Denies deformity and Denies joint swelling Neuro Denies syncope and Denies headache(s) Physical exam (Primary Care) Vital Signs: Last Vital Signs Pulse 78 01/05/24 11:46 BP 124/70 01/05/24 11:46 Pulse Ox 98 01/05/24 11:46 Oxygen Delivery Method Room Air 01/05/24 11:46 BMI result Body Mass Index 29.8 Tobacco/Smoking Status: Tobacco use Status Tobacco use date assessed 09/18/23 01/05/24 11:47 Patient Tobacco Use Status Never used Tobacco 01/05/24 11:47 e-Cigarette/Vaping Use Never Used 01/05/24 11:47 Thrive Assessment: Date of Thrive Assessment Date Thrive assessed 09/18/23 01/05/24 11:47 Const General: cooperative, comfortable, no acute distress and alert Neck Neck: Yes no lymphadenopathy Thyroid: Thyroid normal Resp Effort & Inspection: normal respiratory effort Auscultation: clear to auscultation bilaterally Percussion: percussion normal Cardio Jugular venous distension: no JVD Palpation: normal PMI Rate: regular rate Rhythm: regular rhythm Heart sounds: S1 normal heart sound present and S2 normal heart sound present GI Inspection: Yes normal to inspection Palpation (GI): No hepatosplenomegaly present Skin General skin exam: no rashes or lesions noted Extrem General: Yes no clubbing, cyanosis or edema Assessment and Plan Assessment & Plan (1) Hyperlipidemia: Code(s): E78.5 - Hyperlipidemia, unspecified Plan: stable; same rx Orders: Orders Lipid Panel Today Z13.220 - Encounter for screening for lipoid disorders Coding Level of Care Code Est Pt Level 3 (45809) Diagnoses Hyperlipidemia E78.5
== END 2024-01-05 11:58 | disposition home or self-care (01) ==
PROVIDERS: PCP Internal Medicine; Visit Provider Internal Medicine
DX: E78.5 Hyperlipidemia, unspecified (principal)
CPT/HCPCS: 99213

== ENCOUNTER 2024-05-15 09:11 | Outpatient (AMB) | payer MEDICAID, SELFPAY ==
[2024-05-15 09:15] VITALS: BP 136/76; PULSE 78; O2SAT 98; BMI 28.7
--- NOTE | 2024-05-15 09:15 | A.OFFPC_ITS ---
Vital Signs 05/15/24 09:15 Height 5 ft 7 in Weight 183 lb BMI 28.7 BP 136/76 Blood Pressure Location Lt brachial Position Sitting Pulse 78 Pulse Source Pulse Oximeter Pulse Oximetry (%) 98 Oxygen Delivery Method Room Air Intake Visit Reasons: Annual Exam Picture Hanger Required: No Accompanied by: Self / Same As Patient Allergies morphine [MORPHINE] Allergy (Severe, Verified 05/15/24 09:15) HIVES, rash Medication List - Last Reconciled 05/15/24 by Ivan Biggs MD amitriptyline 50 mg PO DAILY atorvastatin 20 mg PO DAILY carvedilol 3.125 mg PO BID famotidine (Pepcid) 20 mg PO DAILY gabapentin 300 mg PO TID lisinopril 10 mg PO DAILY Tobacco use date assessed: 09/18/23 Dental Screening Dental Screen Date: 09/18/23 HPI Annual Exam HPI Details HTN and hyperlipidemia on rx; doing well FOR[facility]LY [facility], [facility] Medical History Hyperlipidemia Surgical History H/O shoulder surgery History of hip replacement History of surgery Family History Father Diabetes Mother Diabetes Social History Housing: Apartment Alcohol intake: current Alcohol intake frequency: a few times a week Alcohol type: beer and wine Patient Tobacco Use Status: Never used Tobacco Tobacco use type: Cigarette e-Cigarette/Vaping Use: Never Used Second Hand Smoke Exposure: No Substance Use Type: Marijuana service: No Current occupational status: disabled Cognitive needs: Yes (cane) Hearing needs: No Vision needs: Yes (glasses) Questionnaire PHQ-9 Over the last 2 weeks, how often have you been bothered by any of the following problems? 1. Little interest or pleasure in doing things: nearly every day 2. Feeling down, depressed, or hopeless: several days 3. Trouble falling or staying asleep, or sleeping too much: several days 4. Feeling tired or having little energy: several days 5. Poor appetite or overeating: nearly every day 6. Feeling bad about yourself - or that you are a failure or have let yourself or your family down: more than half the days 7. Trouble concentrating on things, such as reading the newspaper or watching television: nearly every day 8. Moving or speaking so slowly that other people could have noticed. Or the opposite - being so fidgety or restless that you have been moving around a lot more than usual: nearly every day 9. Thoughts that you would be better off or of hurting yourself in some way: several days Total score: 18 Depression Screening Interpretation: Positive Depression Screening Done: Yes 17632 - PHQ-9 Billing: Yes Source: Developed by Drs. Martín Castro, Swapna Sinclair, Dougie Flores and colleagues, with an educational luis from [employer]. Thrive Questionnaire Date Thrive assessed: 05/15/24 I am a: Patient What is your living situation today?: I have a steady place to live Within the past 12 months, did the food you bought not last and you didn't have the money to get more?: Sometimes True Within the past 12 months, did you worry whether your food would run out before you got money to buy more?: Sometimes True Do you have trouble paying for medicines?: No Do you have trouble getting transportation to medical appointments?: No Do you have trouble paying your heating and electricity bill?: I choose not to answer this question Do you have trouble taking care of your child, family member or friend?: I choose not to answer this question Do you have trouble with day-to-day activities such as bathing, preparing meals, shopping, managing finances, etc.?: Yes Are you currently unemployed and looking for a job?: No Are you interested in more education?: No Please select the resources that you would like help with: Care for elder or disabled Currently or been in a relationship where the following occur: I choose not to answer THRIVE Score: 2 AUDIT C Alcohol Use Questionnaire (AUDIT-C) 1. How often do you have a drink containing alcohol?: 2-4 times a month 2. How many drinks containing alcohol do you have on a typical day when you are drinking?: 1 or 2 3. How often do you have six or more drinks on one occasion?: Never Total Score: 2 ALISSON-7 AMB Questionnaire ALISSON-7 Date ALISSON - 7 assessed: 05/15/24 Feeling nervous, anxious, or on edge: 3 = Nearly every day Not being able to stop or control worryin = Nearly every day Worrying too much about different things: 3 = Nearly every day Trouble relaxin = Nearly every day Being so restless that it is hard to sit still: 3 = Nearly every day Becoming easily annoyed or irritable: 2 = More than half the days Feeling afraid as if something awful might happen: 1 = Several days Total ALISSON-7 score (0-4 normal; 5-9 mild; 10-14 moderate; 15-21 severe): 18 Source: Developed by Drs. Martín Castro, Swapna Sinclair, Dougie Flores and colleagues, with an educational luis from [employer]. ALISSON-7 Assessment Billing ALISSON-7 Assessment Tool: ALISSON-7 Assessment 95616 Review of Systems Const Denies chills, Denies fatigue, Denies headache(s) and Denies weight loss Eyes Denies change in vision, Denies diplopia and Denies eye pain ENT Denies vertigo, Denies dizziness, Denies headache(s) and Denies nasal discharge Card Denies chest pain, Denies rapid heart rate and Denies dyspnea on exertion Resp Denies chest congestion, Denies cough, Denies pain with cough and Denies dyspnea on exertion GI Denies abdominal pain, Denies hematochezia and Denies change in bowel habits Musc Denies myalgias, Denies arthralgias and Denies joint swelling Skin/Breast Denies lesions and Denies unusual bruising Neuro Denies vertigo, Denies dizziness, Denies headache(s) and Denies focal weakness Endo Denies fatigue Physical exam (Primary Care) Vital Signs: Last Vital Signs Pulse 78 05/15/24 09:15 BP 136/76 05/15/24 09:15 Pulse Ox 98 05/15/24 09:15 Oxygen Delivery Method Room Air 05/15/24 09:15 BMI result Body Mass Index 28.7 Tobacco/Smoking Status: Tobacco use Status Tobacco use date assessed 09/18/23 05/15/24 09:20 Patient Tobacco Use Status Never used Tobacco 05/15/24 09:20 Tobacco use type Cigarette 05/15/24 09:20 e-Cigarette/Vaping Use Never Used 05/15/24 09:20 PHQ-9: PHQ-9 Score PHQ-9: Total score 18 05/15/24 09:20 Depression Screening Interpretation: Positive Thrive Assessment: Date of Thrive Assessment Date Thrive assessed 05/15/24 05/15/24 09:20 Currently or been in a relationship where the following occur: I choose not to answer Const General: cooperative, healthy appearing and no acute distress Orientation/consciousness: oriented to person, oriented to place and oriented to time HENMT Head: Yes normal to inspection, Yes normocephalic and Yes atraumatic Mouth: Normal oral and palatal mucosa present and tongue normal Throat: Yes posterior oropharynx normal and Yes uvula midline Eyes General: appearance normal, both eyes and all related structures Neck Neck: Yes normal visual inspection, Yes full ROM and Yes no lymphadenopathy Thyroid: Thyroid normal Carotids: normal carotid upstroke Chest Chest palpation & inspection: normal inspection of the chest Resp Effort & Inspection: normal respiratory effort and able to speak in complete sentences Auscultation: clear to auscultation bilaterally Cardio Jugular venous distension: no JVD Palpation: normal PMI Rate: regular rate Rhythm: regular rhythm Heart sounds: S1 normal heart sound present and S2 normal heart sound present GI Inspection: Yes normal to inspection Palpation (GI): Soft to palpation and No hepatosplenomegaly present Auscultation: normal bowel sounds General: Yes no CVA tenderness Back/Spine/Pelvis Back: no CVA tenderness Skin General skin exam: no rashes or lesions noted Neuro General: oriented to person, oriented to place and oriented to time Extrem General: Yes normal to inspection and Yes full ROM Coding Level of Care Code Est Pt Prev Care 40-64y(55149) Diagnoses Physical exam Z00.00 Hypertension I10 Hyperlipidemia E78.5 Additional Codes ALISSON-7 Assessment Billing - ALISSON-7 Assessment Tool: ALISSON-7 Assessment 43782 ([id number]) PHQ-9 - 38304 - PHQ-9 Billing: Yes ([id number]) Assessment & Plan Assessment & Plan (1) Physical exam: Code(s): Z00.00 - Encounter for general adult medical examination without abnormal findings Category: Medical Plan: do labs (2) Hypertension: Code(s): I10 - Essential (primary) hypertension Category: Medical Plan: stable; same rx (3) Hyperlipidemia: Code(s): E78.5 - Hyperlipidemia, unspecified Category: Medical Plan: stable; same rx Orders: Orders Complete Blood Count Auto Diff Today Z13.0 - Encounter for screening for diseases of the blood and blood-forming organs and certain disorders involving the immune mechanism Lipid Panel Today Z13.220 - Encounter for screening for lipoid disorders Prostate Specific Antigen Scr Today Z00.00 - Encounter for general adult medical examination without abnormal findings Comprehensive [place]. Panel Fast Today Z13.9 - Encounter for screening, unspecified
== END 2024-05-15 09:39 | disposition home or self-care (01) ==
PROVIDERS: PCP Internal Medicine; Visit Provider Internal Medicine
DX: Z00.00 Encounter for general adult medical examination without abnormal findings (principal); I10 Essential (primary) hypertension; E78.5 Hyperlipidemia, unspecified

== ENCOUNTER → 2024-05-15 09:11 | Outpatient (BNVA) | payer MEDICARE, MEDICAID, SELFPAY | PROVIDERS: PCP Internal Medicine; Visit Provider Internal Medicine | DX: Z00.00 Encounter for general adult medical examination without abnormal findings (principal); I10 Essential (primary) hypertension; E78.5 Hyperlipidemia, unspecified | CPT/HCPCS: 96127; 99396 ==

== ENCOUNTER 2024-08-15 14:08 | Outpatient (AMB) | payer MEDICARE, MEDICAID, SELFPAY ==
--- OUTSIDE RECORDS SUMMARY | 2024-08-15 14:11 | XMS_ITS | Encounter Summary ---
Author Organization [employer] Address [address] [place] [address] Care Team Providers Care Veterinary Anatomist Name Role Phone Unavailable Primary Care Provider Unavailabl e Reason for Visit * Reason Comments Dental Exam Dental Pain Encounter Details Date Type Department Care Team (Late st Contact Info) Description 07/16/2024 11:30 AM EST Office Visit [facility] [address] [place] [address] UriarteJohnathon evanswandy [address] [place] [address] Social History Tobacco Use Types Packs/Day Years Used Date Smoking Tobacco: Never Smokeless Tobacco: Never Sex and Gender Information Value Date Recorded Sex Assigned at Male 05/02/2022 10:17 AM EDT Legal Sex Male 10:17 AM EDT Gender Identity Male 05/02/2022 10:17 AM EDT Sexual Orientation Don't know 05/02/2022 10 :17 AM EDT documented as of this encounter Last Filed Vital Signs Vital Sign Reading Time Taken Comments Blood Pressure 138/76 07/16/2024 11:17 AM EST Pulse - - Temperature - - Respiratory Rate - - Oxygen Saturation - - Inhaled Oxygen Concentration - - Weight - - Height - - Body Mass Index - - documented in this encounter Progress Notes * Godwin Uriarte - 07/16/2024 11:30 AM EST Images from the original note were not included. Dental procedures in this visit D0140 - LIMITED ORAL EVALUATION - PROBLEM FOCUSED (Completed) Service provider: Godwin Uriarte Billing provider: Godwin Uriarte D0330 - PANORAMIC RADIOGRAPHIC IMAGE (Completed) Service provider: Godwin Uriarte Billing provider: Godwin Uriarte D9450 - CASE PRESENTATION, DETAILED AND EXTENSIVE TREATMENT PLANNING (Completed) Service provider: Godwin Uriarte Billing provider: Godwin Uriarte Patient ID: Yonatan Jimenez is a 63 y.o. male. Time Out: Timeout Date: 07/16/24, Timeout Time: 1116 (pano emergency exam) Location: [facility] Tooth: LR Procedure: Exam and X-rays Verified the above with patient, paperhanger assistant, and provider. Confirmed via patient's chart, intraorally and by radiographs. Roads Superintendent: not applicable Chief Complaint Patient presents with Dental Exam Dental Pain Medical Hx: Vitals: Blood pressure 138/76. Past Medical History: Diagnosis Date Anxiety Heart problem Medications: Outpatient Encounter Medications as of 07/16/2024 Medication Sig Dispense Refill acetaminophen (Tylenol 8 Hour) 650 MG ER tablet Take 1 tablet (650 mg) by mouth every 8 (eight) hours if needed for moderate pain for up to 10 days. Do not crush, chew, or split. 15 tablet 0 amitriptyline (Elavil) 50 MG tablet Take 50 mg by mouth Once per day. amoxicillin (Amoxil) 500 MG capsule Take 1 capsule (500 mg) by mouth every 8 (eight) hours for 7 days. 21 capsule 0 carvedilol (Coreg) 3.125 MG tablet Take 3.125 mg by mouth with breakfast and with evening meal. chlorhexidine (Peridex) 0.12 % solution Use 15 mL in the mouth or throat if needed (for mouthwash 15 ml for 30 seconds, swish and spit) for up to 14 days. 473 mL 0 famotidine (Pepcid) 20 MG tablet Take 20 mg by mouth. lisinopril 10 MG tablet Take 10 mg by mouth Once per day. No facility-administered encounter medications on file as of 07/16/2024. 63 y/o male presents for an exam seen by Dr. Godwin Uriarte, DMD. Chief Complaint: I have pain in lower right back tooth since 2 weeks Pt stated that pt went to [facility] and got medications and pt has completed antibiotic course but pt is still experiencing some sensitivity. Medical History: Patient does not report any changes in health issues that could alter the Treatment Plan. Medical consult / medical clearance needed: no [place]: Pain: #1(mild) Allergies: Reviewed in EHR Medications: Reviewed in EHR Cancer screening: Extra-oral: WNL Intraoral: WNL Extra-oral examination TMJ Deviation - No Clicking - No Tenderness - No Facial symmetry - WNL Lymph nodes - WNL Cheeks - WNL Intraoral examination Soft tissues - WNL Palate - WNL Tongue - WNL Buccal mucosa - WNL Floor of mouth - WNL Vestibules - WNL Glands - WNL Duct area - WNL Oropharynx - WNL Radiographs X-rays taken on: PANO taken today Discussion: -Findings, risks, benefits and alternatives discussed with pt. -Reviewed radiograph taken today with pt. -Pointed out areas of bone loss. -Discussed sequelae of bacteria on gingiva and underlying bone. Recommended regular recalls. Advised increased frequency of brushing and flossing. -Upon exam, mild redness, swelling with grade II mobility evident clinically. -Radiographically, generalized advanced bone loss evident. -Pt was recommended extraction of #30, #31, #[address] Hannah on 07/08/24 and pt is aware of it. -Pt's appointment was scheduled in today in [facility] on 08/14/24. -OHI reviewed. Emphasis was laid on maintaining good oral hygiene regimen at home along with regular visits to dentist. -Pt understood, was satisfied with our conversation and agreed with tx plan; dismissed in good condition. -All questions answered. TMJ/Occlusal - TMJ is within normal limits. Oral Cancer Risk - low Oral Hygiene Instruction Provided - Yes Perio risk - high Oral Hygiene Instructions: [place] two times daily, modified reeves technique, Floss daily, Electric toothbrush, Soft bristle toothbrush, [place] Tongue. NV: extractions Seismograph Operator Helper: Lorraine Rogers Dentist: Dr. Godwin Uriarte, DMD documented in this encounter Plan of Treatment Not on file documented as of this encounter Procedures Procedure Name Priority Date/Time Associated Diagnosis Comments PANORAMIC RADIOGRAPHIC IMAGE Routine 07/16/2024 11:30 AM EST LIMITED ORAL EVALUATION - PROBLEM FOCUSED Routine 07/16/2024 11:30 AM EST CASE PRESENTATION, DETAILED AND EXTENSIVE TREATMENT PLANNING Routine 07/16/2024 11:30 AM EST documented in this encounter Visit Diagnoses Not on filedocumented in this encounter
--- OUTSIDE RECORDS SUMMARY | 2024-08-15 14:11 | XMS_ITS | Encounter Summary ---
Author Organization [facility] [employer] [facility] Address [address] [place] [address] Care Team Providers Care Reinstatement Clerk Name Role Phone Unavailable Primary Care Provider Unavailabl e Reason for Visit * Reason Comments Extraction Encounter Details Date Type Department Care Team (Late st Contact Info) Description 08/14/2024 8:00 AM EST Office Visit [facility] [address], [place] [phone] Andrae Jack DDS [address], [place] [id number] Periodontal disease (Primary Dx) Social History Tobacco Use Types Packs/Day Years Used Date Smoking Tobacco: Never Smokeless Tobacco: Never Alcohol Use Standard Drinks/Week Comments Defer 0 (1 standard drink = 0.6 oz pur e alcohol) Sex and Gender Information Value Date Recorded Sex Assigned at Male 05/02/2022 10:17 AM EDT Legal Sex Male 10:17 AM EDT Gender Identity Male 05/02/2022 10:17 AM EDT Sexual Orientation Don't know 05/02/2022 10 :17 AM EDT documented as of this encounter Last Filed Vital Signs Vital Sign Reading Time Taken Comments Blood Pressure 140/86 08/14/2024 8:09 AM EST Pulse - - Temperature - - Respiratory Rate - - Oxygen Saturation - - Inhaled Oxygen Concentration - - Weight - - Height - - Body Mass Index - - documented in this encounter Progress Notes * Andrae Jack DDS - 08/14/2024 8:00 AM EST .a * Andrae Jack DDS - 08/14/2024 8:00 AM EST Patient ID: Yonatan Jmienez is a 63 y.o. male. Time Out: Timeout Date: 08/14/24 (ext on tooth#30 , 31 , 32), Timeout Time: 0809 Location: [facility] Tooth: Mand[place], #30, #31, and #32 Only, per pt's request Procedure: Extraction Verified the above with patient, delivery driver assistant, and provider. Confirmed via patient's chart, intraorally and by radiographs. Brewery Cellar Worker: not applicable Chief Complaint Patient presents with Extraction Medical Hx: Vitals: Blood pressure (!) 140/86. Past Medical History: Diagnosis Date Anxiety Gastroesophageal reflux disease 07/08/2024 Heart problem Hypertension 07/08/2024 Osteoarthritis 07/08/2024 Medications: Outpatient Encounter Medications as of 08/14/2024 Medication Sig Dispense Refill amitriptyline (Elavil) 50 MG tablet Take 50 mg by mouth Once per day. atorvastatin (Lipitor) 20 MG tablet Take 20 mg by mouth Once per day. carvedilol (Coreg) 3.125 MG tablet Take 3.125 mg by mouth with breakfast and with evening meal. famotidine (Pepcid) 20 MG tablet Take 20 mg by mouth. gabapentin (Neurontin) 300 MG capsule Take 300 mg by mouth 3 times daily. lisinopril 10 MG tablet Take 10 mg by mouth Once per day. [] chlorhexidine (Peridex) 0.12 % solution Use 15 mL in the mouth or throat if needed (for mouthwash 15 ml for 30 seconds, swish and spit) for up to 14 days. 473 mL 0 [] ibuprofen 600 MG tablet Take 1 tablet (600 mg) by mouth every 6 (six) hours if needed formild pain for up to 10 days. 15 tablet 0 No facility-administered encounter medications on file as of 08/14/2024. Consent Obtained: The risks, benefits, indications, potential complications, and alternatives were explained to the patient and informed consent was obtained with good understanding. Treatment Provided: Dental procedures in this visit D7140 - EXTRACTION, ERUPTED TOOTH OR EXPOSED ROOT (ELEVATION AND/OR FORCEPS REMOVAL) 30 (Completed) Service provider: Andrae Jack DDS Billing provider: Andrae Jack DDS D7140 - EXTRACTION, ERUPTED TOOTH OR EXPOSED ROOT (ELEVATION AND/OR FORCEPS REMOVAL) 31 (Completed) Service provider: Andrae Jack DDS Billing provider: Andrae Jack DDS D7140 - EXTRACTION, ERUPTED TOOTH OR EXPOSED ROOT (ELEVATION AND/OR FORCEPS REMOVAL) 32 (Completed) Service provider: Andrae Jack DDS Billing provider: Andrae Jack DDS D9450 - ADJUNCTIVE GENERAL SERVICES - PROFESSIONAL VISITS - CASE PRESENTATION, SUBSEQUENT TO DETAILED AND EXTENSIVE TREATMENT PLANNING (Completed) Service provider: Andrae Jack DDS Billing provider: Andrae Jack DDS Diagnosis: Periodontal disease Extra time needed for a better reading on BP and obtaining profound local anesthesia Topical: 20% Benzocaine Anesthesia: 2% Lidocaine (Xylocaine) w/ 1:100,000 epinephrine Number of Cartridges: 3 Injection Type: Inferior alveolar nerve block, Long buccal nerve block, and Mental nerve block Confirmed profound anesthesia. Pharyngeal curtain and bite block placed. Removed tooth with elevators and forceps. Apices intact. Surgical Extraction: Yes, #30,31,32 Socket curetted & irrigated with sterile water. Compressed alveolar bone. Sutures: Chromic Gut All adjacent teeth intact. Hemostasis achieved. Complications: None. Only it takes extra time to get Yonatan numb . Pt states having analgesics at home. Written and verbal post-op instructions given. Patient discharged in stable condition; ambulatory, alert, and oriented. NV: F/U as needed / Cont. [employer] Manager: Acacia Lucero Dentist: Andrae Jack DDS documented in this encounter Plan of Treatment Not on file documented as of this encounter Procedures Procedure Name Priority Date/Time Associated Diagnosis Comments 32 EXTRACTION, ERUPTED TOOTH OR EXPOSED ROOT (ELEVATION/FORCEPS REMOVAL) Routine 08/14/2024 8:00 AM EST 31 EXTRACTION, ERUPTED TOOTH OR EXPOSED ROOT (ELEVATION/FORCEPS REMOVAL) Routine 08/14/2024 8:00 AM EST 30 EXTRACTION, ERUPTED TOOTH OR EXPOSED ROOT (ELEVATION/FORCEPS REMOVAL) Routine 08/14/2024 8:00 AM EST CASE PRESENTATION, DETAILED AND EXTENSIVE TREATMENT PLANNING Routine 08/14/2024 8:00 AM EST documented in this encounter Visit Diagnoses Diagnosis Periodontal disease- Primary Unspecified gingival and periodontal disease documented in this encounter
--- OUTSIDE RECORDS SUMMARY | 2024-08-15 14:11 | XMS_ITS | Clinical Summary ---
Author Organization [employer] Address [address] [facility] [address] [place] [address] Care Team Providers Care Dairy Helper Name Role Phone Unavailable Primary Care Provider Unavailabl e Allergies Active Allergy Reactions Criticality Noted Date Comments Morphine 08/31/2017 Other Reaction(s): Acne Medications amitriptyline (Elavil) 50 MG tablet Take 50 mg by mouth Once per day. Active carvedilol (Coreg) 3.125 MG tablet Take 3.125 mg by mouth with breakfast and with evening meal. 4 Active famotidine (Pepcid) 20 MG tablet Take 20 mg by mouth. 1 Active lisinopril 10 MG tablet Take 10 mg by mouth Once per day. Active atorvastatin (Lipitor) 20 MG tablet Take 20 mg by mouth Once per day. Active gabapentin (Neurontin) 300 MG capsule Take 300 mg by mouth 3 times daily. Active chlorhexidine (Peridex) 0.12 % solution Use 15 mL in the mouth or throat if needed (for mouthwash 15 ml for 30 seconds, swish and spit) for up to 14 days. 473 mL 5 07/22/19 25 acetaminophen (Tylenol 8 Hour) 650 MG ER tablet Take 1 tablet (650 mg) by mouth every 8 (eight) hours if needed for moderate pain for up to 10 days. Do not crush, chew, or split. 15 tablet 5 07/18/19 25 amoxicillin (Amoxil) 500 MG capsule Take 1 capsule (500 mg) by mouth every 8 (eight) hours for 7 days. 21 capsule 5 07/16/19 25 chlorhexidine (Peridex) 0.12 % solution Use 15 mL in the mouth or throat if needed (for mouthwash 15 ml for 30 seconds, swish and spit) for up to 14 days. 473 mL 5 08/12/19 25 amoxicillin (Amoxil) 500 MG capsule Take 1 capsule (500 mg) by mouth every 8 (eight) hours for 7 days. 21 capsule 5 08/05/19 25 ibuprofen 600 MG tablet Take 1 tablet (600 mg) by mouth every 6 (six) hours if needed for mild pain for up to 10 days. 15 tablet 5 08/08/19 25 Active Problems Problem Noted Date Diagnosed Date Periodontal disease 08/14/2024 Anxiety 07/08/2024 Depressive disorder 07/08/2024 Gastroesophageal reflux disease 07/08/2024 Hyperlipidemia 07/08/2024 Hypertension 07/08/2024 Obesity 07/08/2024 Osteoarthritis 07/08/2024 Prediabetes 07/08/2024 Encounters Date Type Department Care Team Description 08/14/2024 8:00 AM EST Office Visit [facility] [address] [place] [address] Andrae Jack DDS Periodontal disease (Primary Dx) 07/29/2024 8:00 AM EST Office Visit [facility] [address] [place] [address] Ara Abdullahi DDS Encounter for dental examination (Primary Dx); Chronic periodontal disease; Dental calculus; Dental plaque 07/16/2024 11:30 AM EST Office Visit [facility] [address] [place], [place] [id number] Godwin Uriarte 07/08/2024 1:00 PM EST Office Visit [facility] [address] [place] [address] Ara Abdullahi DDS Periodontal disease (Primary Dx) from Last 3 Months Immunizations Name Administration Dates Next Due Moderna Covid-19 Vaccine 6+ Bivalent 08/05/2022 Social History Tobacco Use Types Packs/Day Years Used Date Smoking Tobacco: Never Smokeless Tobacco: Never Tobacco Cessation:Counseling Given: Not Answered Alcohol Use Standard Drinks/Week Comments Defer 0 (1 standard drink = 0.6 oz pur e alcohol) Sex and Gender Information Value Date Recorded Sex Assigned at Male 05/02/2022 10:17 AM EDT Legal Sex Male 10:17 AM EDT Gender Identity Male 05/02/2022 10:17 AM EDT Sexual Orientation Don't know 05/02/2022 10 :17 AM EDT Last Filed Vital Signs Vital Sign Reading Time Taken Comments Blood Pressure 140/86 08/14/2024 8:09 AM EST Pulse - - Temperature - - Respiratory Rate - - Oxygen Saturation - - Inhaled Oxygen Concentration - - Weight - - Height - - Body Mass Index - - Plan of Treatment Health Maintenance Due Date Last Done Comments CT Colonography 1961 Colonoscopy 1961 Colorectal Cancer Screening 1961 Depression Screening 1961 Diabetes: Hemoglobin A1C 1961 FIT DNA/Cologuard 1961 FIT 1961 FOBT 1961 HIV Screening 1961 Lipid Panel 1961 SDOH Screening 1961 Sigmoidoscopy 1961 Alcohol/Substance Use Screening 1973 Hepatitis C Screening 11/01/1979 Dental Prophylaxis 08/14/2021 02/10/2021, 0 08/31/2017, 12/22/2016, Additional history exists Dental X-Ray: Bitewings 02/11/2022 02/11/20 21, 09/22/2017, 05/25/2016 Zoster Vaccines (2 of 2) 06/30/2024 05/05/2024 Dental Oral Exam 01/27/2025 07/29/2024, 05/2021, 09/22/2017, Additional history exists Tobacco Screening 08/14/2025 08/14/2024 DTaP/Tdap/Td Vaccines (2 - Td or Tdap) 06/09/2026 06/09/2016 Dental X-Ray: Full Mouth 07/17/2027 025, 02/10/2021, 05/25/2016 RSV Patients and Patients Aged 60 years or older (1 - 1-dose 75+ series) 2036 COVID-19 Vaccine Completed 04/01/2024, 08/2022, 07/29/2021, Additional history exists Influenza Vaccine Completed 04/01/2024, , 06/11/2021 Pneumococcal Vaccine: 50+ Years Completed 05/05/2024 HIB Vaccines Aged Out No longer eligi ble based on patient's age to complete this topic HPV Vaccines Aged Out No longer eligi ble based on patient's age to complete this topic Hepatitis A Vaccines Aged Out No long er eligible based on patient's age to complete this topic Hepatitis B Vaccines Aged Out No long er eligible based on patient's age to complete this topic IPV Vaccines Aged Out No longer eligi ble based on patient's age to complete this topic Meningococcal Vaccine Aged Out No kareem jessie eligible based on patient's age to complete this topic RSV under 20 months Aged Out No longe r eligible based on patient's age to complete this topic Rotavirus Vaccines Aged Out No longer eligible based on patient's age to complete this topic Procedures Procedure Name Priority Date/Time Associated Diagnosis Comments CASE PRESENTATION, DETAILED AND EXTENSIVE TREATMENT PLANNING Routine 08/14/2024 8:00 AM EST 32 EXTRACTION, ERUPTED TOOTH OR EXPOSED ROOT (ELEVATION/FORCEPS REMOVAL) Routine 08/14/2024 8:00 AM EST 31 EXTRACTION, ERUPTED TOOTH OR EXPOSED ROOT (ELEVATION/FORCEPS REMOVAL) Routine 08/14/2024 8:00 AM EST 30 EXTRACTION, ERUPTED TOOTH OR EXPOSED ROOT (ELEVATION/FORCEPS REMOVAL) Routine 08/14/2024 8:00 AM EST PERIODIC ORAL EVALUATION - ESTABLISHED PATIENT Routine 07/29/2024 8:00 AM EST Encounter for dental examination Chronic periodontal disease Dental calculus Dental plaque CASE PRESENTATION, DETAILED AND EXTENSIVE TREATMENT PLANNING Routine 07/29/2024 8:00 AM EST Encounter for dental examination Chronic periodontal disease Dental calculus Dental plaque CASE PRESENTATION, DETAILED AND EXTENSIVE TREATMENT PLANNING Routine 07/16/2024 11:30 AM EST LIMITED ORAL EVALUATION - PROBLEM FOCUSED Routine 07/16/2024 11:30 AM EST PANORAMIC RADIOGRAPHIC IMAGE Routine 07/16/2024 11:30 AM EST CASE PRESENTATION, DETAILED AND EXTENSIVE TREATMENT PLANNING Routine 07/08/2024 1:00 PM EST Periodontal disease INTRAORAL - PERIAPICAL FIRST RADIOGRAPHIC IMAGE Routine 07/08/2024 1:00 PM EST Periodontal disease PALLIATIVE (EMERGENCY) TREATMENT OF DENTAL PAIN - MINOR PROCEDURE Routine 07/08/2024 1:00 PM EST Periodontal disease PROPHYLAXIS - ADULT Routine 02/10/2021 1 2:00 AM EDT INTRAORAL - COMPLETE SERIES OF RADIOGRAPHIC IMAGES Routine 02/10/2021 12:00 AM EDT from Last 3 Months or Most Recently Relevant to Health Maintenance Insurance [facility] [employer] STAND ADULT
--- OUTSIDE RECORDS SUMMARY | 2024-08-15 14:11 | XMS_ITS ---
Author Organization [facility] Address [address] [place] [address] Care Team Providers Care Tire Debeader Name Role Phone Ivan Biggs MD Primary Care Provider Martín Whiteside Unavailable [phone] ALLERGIES Allergen (clinical drug ingredient) Drug/Non Drug Allergy documented on EMR Reaction Allergy Type Onset Date Status morphine Morphine Unknown Drug Allergy Active REASON FOR VISIT Patient presents today for a colon screening MEDICATIONS Medication SIG (Take, Route, Frequency, Duration) Notes Start Date End Date Status Pepcid 20 MG 1 tablet at bedtime as needed Orally Once a day for 30 day(s) Active Atorvastatin Calcium 20 MG TAKE 1 TABLET BY MOUTH EVERY DAY Oral for 90 Active Gabapentin 300 MG TAKE 1 CAPSULE BY MO [facility] THREE TIMES A DAY Oral for 30 Active Lisinopril 20 MG 1 tablet Orally Once a day Active Amitriptyline HCl 50 MG 1 tablet at bedt christiana Orally Once a day Active Aleve PRN Active PROBLEMS Problem Type ICD Code Onset Dates Problem Status W/U Status Risk SNOMED Code Notes Problem Colon cancer screening (Z12.11) Active confirmed Colon cancer screening (501916863) Problem Encounter for other preprocedural examination (Z01.818) Active confirmed Pre-procedure evaluation check (400409450) VITAL SIGNS BMI 30.69 kg/m2 09/26/2023 Blood pressure systolic 00 mm Hg 09/26/19 24 Blood pressure diastolic 00 mm Hg 024 Height 67 in 09/26/2023 Weight 196 lbs 09/26/2023 Encounters Encounter Location Date Provider Diagnosis [facility] [address] [place] [address] 09/26/2023 Martín Brown Colon cancer screeni ng Z12.11 and Encounter for other preprocedural examination Z01.818 ASSESSMENTS Encounter Date Diagnosis Assessment Notes Treatment Notes Treatment Clinical Notes 09/26/2023 Colon cancer screening (ICD-10 - Z12.11) 09/26/2023 Encounter for other preprocedural examination (ICD-10 - Z01.818) PLAN OF TREATMENT Future Test Test Name Order Date COLONOSCOPY 09/26/2023 Next Appt Details Follow Up: prn, Reason: Progress Notes * Examination Category Sub-Category Detail Notes General Examination GENERAL APPEARANCE: pleasant , well nourished, well developed, in no acute distress HEAD: EYES: sclera non-icteric EARS: NOSE: THROAT: NECK/THYROID: no cervical lymphade nopathy, neck supple HEART: S1, S2 normal CHEST: LUNGS: clear to auscultatio n bilaterally ABDOMEN: normal bowel sounds, no guarding or rigidity, no guarding or rigidity, no masses palpable, soft, nontender, nondistended NEUROLOGIC: alert and oriented SKIN: nonjaundiced, no spi jil angiomata EXTREMITIES: no edema PERIPHERAL PULSES: BACK: BREASTS: MUSCULOSKELETAL: MALE GENITOURINARY: LYMPH NODES: RECTAL EXAM: FEMALE GENITOURINARY: ORAL CAVITY: mucosa moist
--- OUTSIDE RECORDS SUMMARY | 2024-08-15 14:11 | XMS_ITS | Encounter Summary ---
Author Organization [facility] [employer] [facility] Address [address] [facility] [address] [place] [address] Care Team Providers Care Link Trainer Maintenance Man Name Role Phone Unavailable Primary Care Provider Unavailabl e Reason for Visit * Reason Comments Dental Exam Encounter Details Date Type Department Care Team (Late st Contact Info) Description 07/29/2024 8:00 AM EST Office Visit [facility] [address] [place] [address] Ara Abdullahi DDS [address] [place] [address] Encounter for dental examination (Primary Dx); Chronic periodontal disease; Dental calculus; Dental plaque Social History Tobacco Use Types Packs/Day Years [...] Sign Reading Time Taken Comments Blood Pressure 130/78 07/29/2024 8:10 AM EST Pulse - - Temperature - - Respiratory Rate - - Oxygen Saturation - - Inhaled Oxygen Concentration - - Weight - - Height - - Body Mass Index - - documented in this encounter Progress Notes * Ara Abdullahi DDS - 07/29/2024 8:00 AM EST Dental procedures in this visit [id number] - COMPREHENSIVE ORAL EVALUATION - NEW OR ESTABLISHED PATIENT (Completed) Service provider: Ara Abdullahi DDS Billing provider: Ara Abdullahi DDS [id number] - ADJUNCTIVE GENERAL SERVICES - PROFESSIONAL VISITS - CASE PRESENTATION, SUBSEQUENT TO DETAILED AND EXTENSIVE TREATMENT PLANNING (Completed) Service provider: Ara Abdullahi DDS Billing provider: Ara Abdullahi DDS Patient ID: Yonatan Jimenez is a 63 y.o. male. Time Out: Timeout Date: 07/29/24, Timeout Time: 0808 (Time out for dental exam) Location: [facility] Tooth: Maxilla and Mandible Procedure: Exam Verified the above with patient, or assistant, and provider. Confirmed via patient's chart, intraorally and by radiographs. Linux Server Administrator: not applicable Chief Complaint Patient presents with Dental Exam Medical Hx: Vitals: Blood pressure 130/78. Past Medical History: Diagnosis Date Anxiety Gastroesophageal reflux disease 07/08/2024 Heart problem Hypertension 07/08/2024 Osteoarthritis 07/08/2024 Medications: Outpatient Encounter Medications as of 07/29/2024 Medication Sig Dispense Refill amitriptyline (Elavil) 50 MG tablet Take 50 mg by mouth Once per day. amoxicillin (Amoxil) 500 MG capsule Take 1 capsule (500 mg) by mouth every 8 (eight) hours for 7 days. 21 capsule 0 atorvastatin (Lipitor) 20 MG tablet Take 20 mg by mouth Once per day. carvedilol (Coreg) 3.125 MG tablet Take 3.125 mg by mouth with breakfast and with evening meal. [] chlorhexidine (Peridex) 0.12 % solution Use 15 mL in the mouth or throat if needed (for mouthwash 15 ml for 30 seconds, swish and spit) for up to 14 days. 473 mL 0 chlorhexidine (Peridex) 0.12 % solution Use 15 mL in the mouth or throat if needed (for mouthwash 15 ml for 30 seconds, swish and spit) for up to 14 days. 473 mL 0 famotidine (Pepcid) 20 MG tablet Take 20 mg by mouth. gabapentin (Neurontin) 300 MG capsule Take 300 mg by mouth 3 times daily. ibuprofen 600 MG tablet Take 1 tablet (600 mg) by mouth every 6 (six) hours if needed for mild painfor up to 10 days. 15 tablet 0 lisinopril 10 MG tablet Take 10 mg by mouth Once per day. No facility-administered encounter medications on file as of 07/29/2024. Objective HPI Soft Tissue Exam No findings documented this visit Head and Neck Exam: Lymph Nodes, Lips, Palate, Buccal Mucosa, Floor of Mouth, Tongue, Tonsils, Alveolar Ridges, Oropharynx, Salivary Ducts, and Vestibules no significant findings observed OCS: negative Dental Exam Radiographic Interpretation: Associated radiographs for today's visit were reviewed and finding(s) were discussed with the patient. Findings include: severe bone loss due to Chronic Periodontal disease, mobility type III. FM extraction recommended. Hard Tissue Exam: No decay and severe bone loss plaque, calculus, inflammation of gums generalized. Pt reports pain on LR side. Reference tooth chart for additional findings. Oral Cancer Risk: Low Risk Oral Hygiene Instructions: Chandler two times daily, modified reeves technique, Floss daily, Soft bristle toothbrush, Chandler Tongue Caries Risk Assessment: Medium- one risk factor Assessment/Plan FM Extractions CDs Patient tolerated procedure well, all questions answered and expressed understanding. Dismissed in good condition. NV: Extractions Joggle Press Operator: Jessica Enrique Dentist: Ara Abdullahi DDS documented in this encounter Plan of Treatment Scheduled Orders Name Type Priority Associated Diagnoses Orde r Schedule 4 4 EXTRACTION, ERUPTED TOOTH OR EXPOSED ROOT (ELEVATION AND/OR FORCEPS REMOVAL) Dental Routine 1 Occurrences [facility]/2024 6 6 EXTRACTION, ERUPTED TOOTH OR EXPOSED ROOT (ELEVATION AND/OR FORCEPS REMOVAL) Dental Routine 1 Occurrences [facility] 07/29/2024 7 7 EXTRACTION, ERUPTED TOOTH OR EXPOSED ROOT (ELEVATION AND/OR FORCEPS REMOVAL) Dental Routine 1 Occurrences [facility] 07/29/2024 8 8 EXTRACTION, ERUPTED TOOTH OR EXPOSED ROOT (ELEVATION AND/OR FORCEPS REMOVAL) Dental Routine 1 Occurrences 07/29/2024 9 9 EXTRACTION, ERUPTED TOOTH OR EXPOSED ROOT (ELEVATION AND/OR FORCEPS REMOVAL) Dental Routine 1 Occurrences 07/29/2024 10 10 EXTRACTION, ERUPTED TOOTH OR EXPOSED ROOT (ELEVATION AND/OR FORCEPS REMOVAL) Dental Routine 1 Occurrences 07/29/2024 11 11 EXTRACTION, ERUPTED TOOTH OR EXPOSED ROOT (ELEVATION AND/OR FORCEPS REMOVAL) Dental Routine 1 Occurrences [facility]/29/2024 12 12 EXTRACTION, ERUPTED TOOTH OR EXPOSED ROOT (ELEVATION AND/OR FORCEPS REMOVAL) Dental Routine 1 Occurrences [facility] 07/29/2024 13 13 EXTRACTION, ERUPTED TOOTH OR EXPOSED ROOT (ELEVATION AND/OR FORCEPS REMOVAL) Dental Routine 1 Occurrences [facility] 07/29/2024 18 18 EXTRACTION, ERUPTED TOOTH OR EXPOSED ROOT (ELEVATION AND/OR FORCEPS REMOVAL) Dental Routine 1 Occurrences [facility] 07/29/2024 19 19 EXTRACTION, ERUPTED TOOTH OR EXPOSED ROOT (ELEVATION AND/OR FORCEPS REMOVAL) Dental Routine 1 Occurrences [facility] 07/29/2024 20 20 EXTRACTION, ERUPTED TOOTH OR EXPOSED ROOT (ELEVATION AND/OR FORCEPS REMOVAL) Dental Routine 1 Occurrences [facility] 07/29/2024 21 21 EXTRACTION, ERUPTED TOOTH OR EXPOSED ROOT (ELEVATION AND/OR FORCEPS REMOVAL) Dental Routine 1 Occurrences [facility] 07/29/2024 22 22 EXTRACTION, ERUPTED TOOTH OR EXPOSED ROOT (ELEVATION AND/OR FORCEPS REMOVAL) Dental Routine 1 Occurrences [facility] 07/29/2024 23 23 EXTRACTION, ERUPTED TOOTH OR EXPOSED ROOT (ELEVATION AND/OR FORCEPS REMOVAL) Dental Routine 1 Occurrences [facility] 07/29/2024 24 24 EXTRACTION, ERUPTED TOOTH OR EXPOSED ROOT (ELEVATION AND/OR FORCEPS REMOVAL) Dental Routine 1 Occurrences [facility] 07/29/2024 25 25 EXTRACTION, ERUPTED TOOTH OR EXPOSED ROOT (ELEVATION AND/OR FORCEPS REMOVAL) Dental Routine 1 Occurrences [facility] 07/29/2024 26 26 EXTRACTION, ERUPTED TOOTH OR EXPOSED ROOT (ELEVATION AND/OR FORCEPS REMOVAL) Dental Routine 1 Occurrences [facility] 07/29/2024 27 27 EXTRACTION, ERUPTED TOOTH OR EXPOSED ROOT (ELEVATION AND/OR FORCEPS REMOVAL) Dental Routine [address] [facility] 07/29/2024 28 28 EXTRACTION, ERUPTED TOOTH OR EXPOSED ROOT (ELEVATION AND/OR FORCEPS REMOVAL) Dental Routine 1 Occurrences [facility] 07/29/2024 29 29 EXTRACTION, ERUPTED TOOTH OR EXPOSED ROOT (ELEVATION AND/OR FORCEPS REMOVAL) Dental Routine 1 Occurrences [facility] 07/29/2024 Max Max COMPLETE DENTURE - MAXILLARY Dental Routine 1 Occurrences 07/29/2024 Jorge Jorge COMPLETE DENTURE - MANDIBULAR Dental Routine 1 Occurrenc es starting 07/29/2024 DENTURE IMPRESSION Dental Routine 1 Occu rrences starting 07/29/2024 DENTURE IMPRESSION Dental Routine 1 Occu rrences starting 07/29/2024 BITE REGISTRATION Dental Routine 1 Occur rences starting 07/29/2024 WAX TRY IN Dental Routine 1 Occurrences starting 07/29/2024 documented as of this encounter Procedures Procedure Name Priority Date/Time Associated Diagnosis Comments PERIODIC ORAL EVALUATION - ESTABLISHED PATIENT Routine 07/29/2024 8:00 AM EST Encounter for dental examination Chronic periodontal disease Dental calculus Dental plaque CASE PRESENTATION, DETAILED AND EXTENSIVE TREATMENT PLANNING Routine 07/29/2024 8:00 AM EST Encounter for dental examination Chronic periodontal disease Dental calculus Dental plaque documented in this encounter Visit Diagnoses Diagnosis Encounter for dental examination- Primary Chronic periodontal disease Dental calculus Accretions on teeth Dental plaque Accretions on teeth documented in this encounter
--- OUTSIDE RECORDS SUMMARY | 2024-08-15 14:12 | XMS_ITS ---
Author Organization [facility] Address [address] [place] [address] Care Team Providers Care Straightedge Man Name Role Phone Ivan Biggs MD Primary Care Provider UnavailMartín Grewal [phone] Encounters Encounter Location Date Provider Diagnosis [facility] [address] [place] [address] 05/11/2023 Martín Brown PLAN OF TREATMENT No Information
--- OUTSIDE RECORDS SUMMARY | 2024-08-15 14:12 | XMS_ITS | Patient Health Record ---
Author Organization [facility] Address [address] [place] [address] Care Team Providers Care Specialist Employee Labor Relations Name Role Phone Kalyan DIAZ, Ivan Primary Care Provider Martín Whiteside Unavailable [phone] ALLERGIES Allergen (clinical drug ingredient) Drug/Non Drug Allergy documented on EMR Reaction Allergy Type Onset Date Status morphine Morphine Unknown Drug Allergy Active RESULTS Component Value Reference Range Notes Pathology (Not yet reviewed by provider) Interpretation: Performing Lab:[facility], [address] [place] [id number] Notes/Report: REASON FOR REFERRAL Referred Organization [facility] Referred Provider Martín Brown Referred Address [address] [place] [address],[address],[place], [place],[address], Referred Provider Specialty Gastroentero logy General Notes Irasema Pro 024 11:21:02 AM EST > NO REFERRAL REQUIRED FOR [facility] PER DR BURGOS' OFFICE Referral Priority Routine MEDICATIONS Medication SIG (Take, Route, Frequency, Duration) Notes Start Date End Date Status Pepcid 20 MG 1 tablet at bedtime as needed Orally Once a day for 30 day(s) Active Atorvastatin Calcium 20 MG TAKE 1 TABLET BY MOUTH EVERY DAY Oral for 90 Active Lisinopril 20 MG 1 tablet Orally Once a day Active Amitriptyline HCl 50 MG 1 tablet at bedt christiana Orally Once a day Active Aleve PRN Active Gabapentin 300 MG TAKE 1 CAPSULE BY MO [facility] THREE TIMES A DAY Oral for 30 Active SOCIAL HISTORY Sex Assigned At : Social History Observation Description Sex Assigned At Unknown PROBLEMS Problem Type ICD Code Onset Dates Problem Status W/U Status Risk SNOMED Code Notes Problem Colon cancer screening (Z12.11) Active confirmed Colon can cer screening (329417241) Problem Encounter for other preprocedural examination (Z01.818) Active confirmed Pre-procedure evaluation check (161971918) Problem Diverticulosis of large intestine without perforation or abscess without bleeding (K57.30) Active confirmed Diverticul ar disease of colon (990830709) VITAL SIGNS Blood pressure diastolic 00 mm Hg 09/26/2023 Height 67 in 09/26/2023 Blood pressure systolic 00 mm Hg 09/26/2023 Weight 196 lbs 09/26/2023 BMI 30.69 kg/m2 09/26/2023 Encounters Encounter Location Date Provider Diagnosis [facility] [address] [place], [place] [id number] 01/01/2024 Martín Brown Encounter for screen ing colonoscopy Z12.11 ; Colon polyps K63.5 ; Diverticulosis of large intestine without perforation or abscess without bleeding K57.30 and Other hemorrhoids K64.8 [facility] [address] [place] [address] 09/26/2023 Martín Brown Colon cancer screeni ng Z12.11 and Encounter for other preprocedural examination Z01.818 ASSESSMENTS Encounter Date Diagnosis Assessment Notes Treatment Notes Treatment Clinical Notes 01/01/2024 Encounter for screening colonoscopy (ICD-10 - Z12.11) 01/01/2024 Colon polyps (ICD-10 - K63.5) 09/26/2023 Colon cancer screening (ICD-10 - Z12.11) 09/26/2023 Encounter for other preprocedural examination (ICD-10 - Z01.818) 01/01/2024 Diverticulosis of large intestine without perforation or abscess without bleeding (ICD-10 - K57.30) 01/01/2024 Other hemorrhoids (ICD-10 - K64.8) PLAN OF TREATMENT Pending Test Test Name Order Date Pathology 01/01/2024 Future Test Test Name Order Date COLONOSCOPY 07/17/2014 COLONOSCOPY 09/26/2023 Insurance Providers Payer Name Payer Address Payer Phone Subscriber Number Group Number Insured Name Patient Relationship to Insured Coverage Start Date Coverage End Date [facility] [employer] [address] [place], [place] [id number] ANA LEIJA Self - patient is the insured MEDICAL (GENERAL) HISTORY Medical History History ICD Code Denies DE,DM,CVA,Lung disease,renal dise ase Hyperlipidemia Anxiety/sleep disorder--takes Amitryptil blake Hypertension Neuropathy in feet-takes gabapentin Arthritis in back, hands, neck, shoulder s, etc Negative screening colonoscopy in 2014, but with a limited prep Surgical History Surgery Date(Month/Year) L4/L5 Back surgery C-spine surgery Shoulder surgery 2010 Left hip replacement 2020
--- OUTSIDE RECORDS SUMMARY | 2024-08-15 14:12 | XMS_ITS | Encounter Summary ---
Author Organization [facility] [employer] [facility] Address [address] [place] [address] Care Team Providers Care Lock Fitter Name Role Phone Unavailable Primary Care Provider Unavailabl e Encounter Details Date Type Department Care Team (Latest Contact Info) Description 02/10/2021 Abstract [facility] CONVERSIONS Dental, Provider, DDS Social History Tobacco Use Types Packs/Day Years Used Date Smoking Tobacco: Never Assessed Sex and Gender Information Value Date Recorded Sex Assigned at Male 05/02/2022 10:17 AM EDT Legal Sex Male 10:17 AM EDT Gender Identity Male 05/02/2022 10:17 AM EDT Sexual Orientation Don't know 05/02/2022 10 :17 AM EDT documented as of this encounter Plan of Treatment Not on file documented as of this encounter Visit Diagnoses Not on filedocumented in this encounter
--- OUTSIDE RECORDS SUMMARY | 2024-08-15 14:12 | XMS_ITS ---
Author Organization [facility] Address [address] [place] [address] Care Team Providers Care Office Cashier Name Role Phone Ivan Biggs MD Primary Care Provider Unavaila Martín Bronson Unavailable [phone] REASON FOR VISIT screening PROBLEMS Problem Type ICD Code Onset Dates Problem Status W/U Status Risk SNOMED Code Notes Problem Diverticulosis of large intestine without perforation or abscess without bleeding (K57.30) Active confirmed Diverticul ar disease of colon (469274363) Encounters Encounter Location Date Provider Diagnosis [facility] Outpatient [address], [place] [phone] 01/01/2024 Martín Brown Encounter for scre ening colonoscopy Z12.11 ; Colon polyps K63.5 ; Diverticulosis of large intestine without perforation or abscess without bleeding K57.30 and Other hemorrhoids K64.8 ASSESSMENTS Encounter Date Diagnosis Assessment Notes Treatment Notes Treatment Clinical Notes 01/01/2024 Encounter for screening colonoscopy (ICD-10 - Z12.11) 01/01/2024 Colon polyps (ICD-10 - K63.5) 01/01/2024 Diverticulosis of large intestine without perforation or abscess without bleeding (ICD-10 - K57.30) 01/01/2024 Other hemorrhoids (ICD-10 - K64.8) PLAN OF TREATMENT No Information
[2024-08-15 14:13] VITALS: BP 136/76; PULSE 100; TEMP 36.3; O2SAT 96; BMI 29.8
--- NOTE | 2024-08-15 14:13 | A.OFFPC_ITS ---
Vital Signs 08/15/24 14:13 Height 5 ft 7 in Weight 190 lb 6 oz BMI 29.8 BP 136/76 Blood Pressure Location Lt brachial Position Sitting Pulse 100 Pulse Source Pulse Oximeter Temp 97.3 F Temp Source Temporal Artery Scan Pulse Oximetry (%) 96 Oxygen Delivery Method Room Air Intake Visit Reasons: 3mth f/u Contract Technician Required: No Accompanied by: Self / Same As Patient Allergies morphine [MORPHINE] Allergy (Severe, Verified 08/15/24 14:18) HIVES, rash Medication List - Last Reconciled 08/15/24 by Ivan Biggs MD amitriptyline 50 mg PO DAILY atorvastatin 20 mg PO DAILY carvedilol 3.125 mg PO BID famotidine (Pepcid) 20 mg PO DAILY gabapentin 300 mg PO TID lisinopril 10 mg PO DAILY Tobacco use date assessed: 08/15/24 Dental Screening Dental Screen Date: 08/15/24 Did you have a dental visit in the last 12 months?: Yes Did you have a dental problem in the last 6 months where you did not have access to dental care?: No Was dental information given to patient?: Patient has dentist HPI 3mth f/u HPI Details HTN and hyperlipidemia on rx; doing well; compliantr [facility] Medical History Hyperlipidemia Surgical History H/O shoulder surgery History of hip replacement History of surgery Family History Father Diabetes Mother Diabetes Social History Housing: Apartment Alcohol intake: current Alcohol intake frequency: a few times a week Alcohol type: beer and wine Patient Tobacco Use Status: Never used Tobacco Tobacco use type: Cigarette e-Cigarette/Vaping Use: Never Used Second Hand Smoke Exposure: No Substance Use Type: Marijuana service: No Current occupational status: disabled Cognitive needs: Yes (cane) Hearing needs: No Vision needs: Yes (glasses) Questionnaire PHQ-9 Over the last 2 weeks, how often have you been bothered by any of the following problems? 1. Little interest or pleasure in doing things: not at all 2. Feeling down, depressed, or hopeless: not at all 3. Trouble falling or staying asleep, or sleeping too much: not at all 4. Feeling tired or having little energy: not at all 5. Poor appetite or overeating: not at all 6. Feeling bad about yourself - or that you are a failure or have let yourself or your family down: not at all 7. Trouble concentrating on things, such as reading the newspaper or watching television: not at all 8. Moving or speaking so slowly that other people could have noticed. Or the opposite - being so fidgety or restless that you have been moving around a lot more than usual: not at all 9. Thoughts that you would be better off or of hurting yourself in some way: not at all Total score: 0 Depression Screening Interpretation: Negative Depression Screening Done: Yes 68781 - PHQ-9 Billing: Yes Source: Developed by Drs. Martín Castro, Swapna Sinclair, Dougie Flores and colleagues, with an educational luis from [employer] ([employer]). Thrive Questionnaire Date Thrive assessed: 08/15/24 I am a: Patient What is your living situation today?: I have a steady place to live Within the past 12 months, did the food you bought not last and you didn't have the money to get more?: Sometimes True Within the past 12 months, did you worry whether your food would run out before you got money to buy more?: Sometimes True Do you have trouble paying for medicines?: No Do you have trouble getting transportation to medical appointments?: No Do you have trouble paying your heating and electricity bill?: I choose not to answer this question Do you have trouble taking care of your child, family member or friend?: I choose not to answer this question Do you have trouble with day-to-day activities such as bathing, preparing meals, shopping, managing finances, etc.?: Yes Are you currently unemployed and looking for a job?: No Are you interested in more education?: No Please select the resources that you would like help with: Care for elder or disabled Currently or been in a relationship where the following occur: I choose not to answer THRIVE Score: 2 AUDIT C Alcohol Use Questionnaire (AUDIT-C) 1. How often do you have a drink containing alcohol?: Monthly or less 2. How many drinks containing alcohol do you have on a typical day when you are drinking?: 1 or 2 3. How often do you have six or more drinks on one occasion?: Less than monthly Total Score: 2 ALISSON-7 AMB Questionnaire ALISSON-7 Date ALISSON - 7 assessed: 08/15/24 Feeling nervous, anxious, or on edge: 0 = Not at all Not being able to stop or control worryin = Not at all Worrying too much about different things: 0 = Not at all Trouble relaxin = Not at all Being so restless that it is hard to sit still: 0 = Not at all Becoming easily annoyed or irritable: 0 = Not at all Feeling afraid as if something awful might happen: 0 = Not at all Total ALISSON-7 score (0-4 normal; 5-9 mild; 10-14 moderate; 15-21 severe): 0 Source: Developed by Drs. Martín Castro, Swapna Sinclair, Dougie Flores and colleagues, with an educational luis from [employer] ([employer]). ALISSON-7 Assessment Billing ALISSON-7 Assessment Tool: ALISSON-7 Assessment 46694 Review of Systems Const Denies chills, Denies headache(s) and Denies weight loss ENT Denies headache(s) Card Denies chest pain, Denies syncope, Denies irregular heart rhythm and Denies dyspnea Resp Denies chest congestion, Denies cough and Denies dyspnea GI Denies abdominal pain, Denies change in stool character, Denies nausea and Denies vomiting Musc Denies deformity and Denies joint swelling Neuro Denies syncope and Denies headache(s) Physical exam (Primary Care) Vital Signs: Last Vital Signs Temp 97.3 F 08/15/24 14:13 Pulse 100 08/15/24 14:13 BP 136/76 08/15/24 14:13 Pulse Ox 96 08/15/24 14:13 Oxygen Delivery Method Room Air 08/15/24 14:13 BMI result Body Mass Index 29.8 Tobacco/Smoking Status: Tobacco use Status Tobacco use date assessed 08/15/24 08/15/24 14:19 Patient Tobacco Use Status Never used Tobacco 08/15/24 14:19 Tobacco use type Cigarette 08/15/24 14:19 e-Cigarette/Vaping Use Never Used 08/15/24 14:19 PHQ-9: PHQ-9 Score PHQ-9: Total score 0 08/15/24 14:19 Depression Screening Interpretation: Negative Thrive Assessment: Date of Thrive Assessment Date Thrive assessed 08/15/24 08/15/24 14:19 Currently or been in a relationship where the following occur: I choose not to answer Const General: cooperative, comfortable, no acute distress and alert Neck Neck: Yes no lymphadenopathy Thyroid: Thyroid normal Resp Effort & Inspection: normal respiratory effort Auscultation: clear to auscultation bilaterally Percussion: percussion normal Cardio Jugular venous distension: no JVD Palpation: normal PMI Rate: regular rate Rhythm: regular rhythm Heart sounds: S1 normal heart sound present and S2 normal heart sound present GI Inspection: Yes normal to inspection Palpation (GI): No hepatosplenomegaly present Skin General skin exam: no rashes or lesions noted Extrem General: Yes no clubbing, cyanosis or edema Coding Level of Care Code Est Pt Level 3 (40029) Diagnoses Hypertension I10 Hyperlipidemia E78.5 Additional Codes ALISSON-7 Assessment Billing - ALISSON-7 Assessment Tool: ALISSON-7 Assessment 27203 ([id number]) PHQ-9 - 74485 - PHQ-9 Billing: Yes ([id number]) Assessment & Plan Assessment & Plan (1) Hypertension: Code(s): I10 - Essential (primary) hypertension Category: Medical Plan: stable; same rx (2) Hyperlipidemia: Code(s): E78.5 - Hyperlipidemia, unspecified Category: Medical Plan: stable; same rx
== END 2024-08-15 14:31 | disposition home or self-care (01) ==
PROVIDERS: PCP Internal Medicine; Visit Provider Internal Medicine
DX: I10 Essential (primary) hypertension (principal); E78.5 Hyperlipidemia, unspecified

== ENCOUNTER → 2024-08-15 14:08 | Outpatient (BNVA) | payer MEDICARE, MEDICAID, SELFPAY | PROVIDERS: PCP Internal Medicine; Visit Provider Internal Medicine | DX: I10 Essential (primary) hypertension (principal); E78.5 Hyperlipidemia, unspecified | CPT/HCPCS: 96127; 99212 ==

== ENCOUNTER 2024-08-28 07:11 | Outpatient (REF) | payer MEDICARE, MEDICAID, SELFPAY ==
[2024-08-28 07:25] LABS: MANUAL DIFF FLAG NO
[2024-08-28 07:52] LABS: Basophils Percent Auto 0.4 % (0-2); Eosinophils Absolute Auto 0.1 X10*3/uL (0.0-0.4); Eosinophils Percent Auto 0.9 % (0-4); Hematocrit 44.9 % (42.0-52.0); Hemoglobin 15.3 g/dl (14.0-18.0); Imm Gran Abs Auto 0.08 X10*3/uL (0.00-0.03); Imm Gran Pct Auto 1.2 % (0.0-0.4); Lymphocytes Absolute Auto 1.7 X10*3/uL (1.2-4.9); Lymphocytes Percent Auto 24.4 % (20-40); Mean Corpuscular HGB Conc 34.1 g/dl (31.0-36.0); Mean Corpuscular Hemoglobin 32.1 pg (27.0-33.0); Mean Corpuscular Volume 94.3 fL (80.0-98.0); Mean Platelet Volume 10.2 fL (9.4-12.4); Monocytes Absolute Auto 0.7 X10*3/uL (0.1-1.2); Monocytes Percent Auto 10.6 % (2-11); Neutrophils Absolute Auto 4.2 x10*3/uL (2.0-8.3); Neutrophils Percent Auto 62.5 % (45-73); Platelet Count 244 X10*3/uL (160-400); Red Blood Count 4.76 X10*6/uL (4.60-5.80); Red Cell Distribution Width 13.3 % (11.0-16.0); White Blood Count 6.8 X10*3/uL (4.8-10.8)
[2024-08-28 08:15] LABS: Alanine Aminotransferase 29 U/L (0-40); Albumin Level 4.3 g/dL (3.5-5.0); Alkaline Phosphatase 114 U/L (39-117); Anion Gap 13 (12-20); Aspartate Amino Transferase 24 U/L (5-37); Bilirubin Total 0.8 mg/dL (0.0-1.0); Blood Urea Nitrogen 13 mg/dL (9-16); Calcium 9.5 mg/dL (8.4-10.2); Carbon Dioxide 30 mmol/L (22-29); Chloride 103 mmol/L (96-108); Cholesterol 216 mg/dL (<200); Estimated Glomerular Filt Rate > 60; Glucose Fasting 95 mg/dL (60-99); HDL Cholesterol 57 mg/dL (>40); LDL Cholesterol Calculated 141 mg/dL (<100); Potassium 3.9 mmol/L (3.3-5.1); Sodium 142 mmol/L (135-145); Total Protein 7.7 g/dL (6.5-8.0); Triglycerides 93 mg/dL (<150)
[2024-08-28 08:34] LABS: Prostate Specific Antigen Scr 0.42 ng/mL (<0.05-4.0)
== END 2024-08-28 07:12 | disposition home or self-care (01) ==
LOC: HO.LAB 07:11
PROVIDERS: PCP Internal Medicine; Visit Provider Internal Medicine
DX: Z00.00 Encounter for general adult medical examination without abnormal findings (principal); Z13.220 Encounter for screening for lipoid disorders; Z13.0 Encounter for screening for diseases of the blood and blood-forming organs and certain disorders involving the immune mechanism; Z13.9 Encounter for screening, unspecified; Z12.5 Encounter for screening for malignant neoplasm of prostate
CPT/HCPCS: 36415; 80053; 80061; 84153; 85025

== ENCOUNTER 2024-11-22 06:45 | Emergency (ER) | payer MEDICARE, MEDICAID, SELFPAY ==
--- NOTE | ~2024-11-22 | US_ITS ---
EXAMINATION: US TRIPLEX UPPER EXTREMITY, LEFT CLINICAL INFORMATION: Swollen forearm left side. COMPARISON: None available. TECHNIQUE: Color-flow triplex imaging with spectral analysis and compression Doppler was performed on the left upper extremity. FINDINGS: The left internal jugular, subclavian, and axillary veins are patent and free of thrombus. The imaged segment of the left brachiocephalic vein is patent. Spectral doppler waveforms are normal. The brachial, basilic, cephalic, radial, and ulnar veins are patent and compressible. US/US venous duplex UE LT IMPRESSION: No evidence of deep venous thrombosis involving the left upper extremity. Electronically signed by: Casey Fowler MD 11/22/2024 08:37 AM EDT
--- NOTE | ~2024-11-22 | XR_ITS ---
EXAMINATION: XR FOREARM, LEFT CLINICAL INFORMATION: left arm swelling COMPARISON: None available. TECHNIQUE: AP and lateral views of the left forearm were obtained. FINDINGS: No fracture, dislocation, or suspicious bone lesion. Normal alignment. No elbow joint effusion. Arthritic changes in the radiocapitellar and ulnar trochlear joints. Small olecranon spur. Mild soft tissue swelling of the lateral and volar forearm. There are vascular calcifications. XR/XR forearm LT 2V IMPRESSION: No acute bony abnormalities identified. Mild soft tissue swelling of the forearm. Electronically signed by: Casey Fowler MD 11/22/2024 08:51 AM EDT
--- NOTE | ~2024-11-22 | XR_ITS ---
EXAMINATION: XR WRIST, LEFT CLINICAL INFORMATION: wrsit/forearm swollen COMPARISON: 03/20/2020. TECHNIQUE: PA, lateral, oblique, and scaphoid views of the left wrist. FINDINGS: No fracture, dislocation, or suspicious bone lesion. Normal carpal alignment. Mild radiocarpal joint space narrowing. Mild osteoarthrosis in the first CMC joint and STT joints, as well as the first through third MCP joints. Soft tissues normal aside from vascular calcifications. XR/XR wrist LT min 3V IMPRESSION: No acute bony abnormalities of the left wrist. Electronically signed by: Casey Fowler MD 11/22/2024 08:50 AM EDT
[2024-11-22 06:52] VITALS: BP 151/92; PULSE 75; RESP 18; TEMP 36.3; O2SAT 98; BMI 30.3
--- OUTSIDE RECORDS SUMMARY | 2024-11-22 07:19 | XMS_ITS ---
Author Organization [facility] Address [address] [place] [address] Care Team Providers Care Landscape Manager Name Role Phone Ivan Biggs MD Primary Care Provider Martín Whiteside Unavailable [phone] Allergies Allergen (clinical drug ingredient) Drug/Non Drug Allergy documented on EMR Reaction Allergy Type Onset Date Status morphine Morphine Unknown Drug Allergy Active REASON FOR VISIT Patient presents today for a colon screening Medications Medication SIG (Take, Route, Frequency, Duration) Notes [...] Once a day Active Aleve PRN Active Problems Problem Type SNOMED Code ICD Code Onset Dates Problem Status W/U Status Risk Notes Problem Colon cancer screening (Z12.11) Active confirmed Problem Pre-procedure evaluation check ([id number]) Encounter for other preprocedural examination (Z01.818) Active confirmed Vital Signs Blood pressure systolic 00 mm Hg 09/26/19 24 Blood pressure diastolic 00 mm Hg 024 Height 67 in 09/26/2023 Weight 196 lbs 09/26/2023 BMI 30.69 kg/m2 09/26/2023 Encounters Encounter Location Date Provider Diagnosis [facility] [address] [place] [address] 09/26/2023 Martín Brown Colon cancer screeni ng Z12.11 and Encounter for other preprocedural examination Z01.818 Assessments Encounter Date Diagnosis (ICD Code) Assessment Notes Treatment Notes Treatment Clinical Notes Section Notes 09/26/2023 Colon cancer screening (ICD-10 - Z12.11) Overall, Ana appears quite well. I did recommend a followup colonoscopy further screening given his last exam being over 7 years ago and the somewhat limited prep on that day. We did review the rationale for the colonoscopy in regard to colorectal cancer prevention. Full consent is obtained for this, including risks of bleeding and perforation. The procedure will be done with monitored anesthesia care. He will take some extra Dulcolax 2 days before the procedure to hopefully allow for a better bowel prep. Ana was comfortable with this plan. Thank you again for allowing me to participate in Ana's care. I shall continue to keep you advised of his progress. 09/26/2023 Encounter for other preprocedural examination (ICD-10 - Z01.818) Overall, Ana appears quite well. I did recommend a followup colonoscopy further screening given his last exam being over 7 years ago and the somewhat limited prep on that day. We did review the rationale for the colonoscopy in regard to colorectal cancer prevention. Full consent is obtained for this, including risks of bleeding and perforation. The procedure will be done with monitored anesthesia care. He will take some extra Dulcolax 2 days before the procedure to hopefully allow for a better bowel prep. Ana was comfortable with this plan. Thank you again for allowing me to participate in Ana's care. I shall continue to keep you advised of his progress. Plan Of Treatment Future Test Test Name Order Date COLONOSCOPY 09/26/2023 Next Appt Details Follow Up: prn, Reason: Progress Notes * ANA LEIJADOB:1960 ( 62 yo M)Acc No.[id number]:09/26/2023 Progress Notes Patient:?ANA LEIJA Provider:?Martín Brown MD :1960???Age:62 Y???Sex:Male Pravin e:09/26/2023 Address:[address] [place] [address] , [facility] [id number] Pcp:Ivan Biggs MD Subjective: * Chief Complaints: * ???Patient presents today fo r a colon screening * HPI: ???incontinence:? I saw Ana in the office today for evaluation of colorectal cancer screening. ?I last saw Ana in 2014, at which time he underwent a negative screening colonoscopy. However, in reviewing the report of that procedure the prep with that colonoscopy was not complete as there was a lot of residual liquid. He currently feels very well. He enjoys a good appetite, without any significant heartburn or dysphagia. He denies any abdominal pain, jaundice, nor weight loss. His bowel movements have been regular and without any hematochezia nor melena. He denies any known family history of colon cancer. * ROS:?General/Constitutional:?Change in appetite?denies.?Chills?denies.?Fatigue?denies.?Ophthalmologic:?Comments?all negative.?ENT:?Comments?all negative.?Respiratory:?hemoptysis?denies.?Cough?denies.?Cardiovascular:?Chest pain?denies.?Orthopnea?denies.?Gastrointestinal:?Comments?See HPI for details.?Genitourinary:?Hematuria?denies.?Dysuria?denies.?Musculoskeletal:?Painful joints?He describes a lot of arthritis in his back, hands, shoulder, and neck ?He also has burning in his feet from neuropathy.?Weakness?denies.?Skin:?Itching?denies.?Rash?denies.?Neurologic:?Headache?denies.?Seizures?denies.?Psychiatric:?Comments?all negative.? * Medical History:? * Surgical History:?L4/L5 Back surgery C-spine surgery Shoulder surgery 2010Left hip replacement 2020 * Hospitalization/Major Diagno stic Procedure:?No Hospitalization History. * Family History:?Father: dece ased, diagnosed with Diabetes.?Mother: , diagnosed with HTN (hypertension).? No colorectal cancer. * Social History:?Tobacco Use:?Tobacco Use/Smoking?Are you a: former smoker , How long has it been since you last smoked?: > 10 years.?Drugs/Alcohol:?Alcohol Screen?Points: 0, Interpretation: Negative.?Miscellaneous:?Marital status: Single, but lives with the same woman for 30 years. 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 ???Nonsmoker except daily marijuana; no sig alcohol. * Medications:?TakingPepcid 20 MG Tablet 1 tablet at bedtime as needed Orally Once a dayLisinopril 20 MG Tablet 1 tablet Orally Once a dayAmitriptyline HCl 50 MG Tablet 1 tablet at bedtime Orally Once a dayAleve PRNGabapentin 300 MG Capsule TAKE 1 CAPSULE BY MOUTH THREE TIMES A DAY Oral Atorvastatin Calcium 20 MG Tablet TAKE 1 TABLET BY MOUTH EVERY DAY Oral Taking Pepcid 20 MG Tablet 1 tablet at bedtime as needed Orally Once a dayTaking Lisinopril 20 MG Tablet 1 tablet Orally Once a dayTaking Amitriptyline HCl 50 MG Tablet 1 tablet at bedtime Orally Once a dayTaking Aleve PRNTaking Gabapentin 300 MG Capsule TAKE 1 CAPSULE BY MOUTH THREE TIMES A DAY Oral Taking Atorvastatin Calcium 20 MG Tablet TAKE 1 TABLET BY MOUTH EVERY DAY Oral DiscontinuedSimvastatin 20 MG Tablet 1 tablet in the evening Orally Once a dayColyte w Flavor Packs 240 GM Solution Reconstituted as directed Orally as directedMedication List reviewed and reconciled with the patientDiscontinued Simvastatin 20 MG Tablet 1 tablet in the evening Orally Once a dayDiscontinued Colyte w Flavor Packs 240 GM Solution Reconstituted as directed Orally as directedMedication List reviewed and reconciled with the patient * Allergies:?Morphineyes[Aller gies Verified] Objective: * Vitals:?Wt: 196 lbs, Ht: 67 in, BMI:30.69 Index, BP: 00/00 mm Hg. * Examination: ???General Examination: ?GENERAL APPEARANCE:?pleasant, well nourished, well developed, in no acute distress.?EYES:?sclera non-icteric.?ORAL CAVITY:?mucosa moist.?NECK/THYROID:?no cervical lymphadenopathy, neck supple.?SKIN:?nonjaundiced, no spider angiomata.?HEART:?S1, S2 normal.?LUNGS:?clear to auscultation bilaterally.?ABDOMEN:?normal bowel sounds, no guarding or rigidity, no guarding or rigidity, no masses palpable, soft, nontender, nondistended.?EXTREMITIES:?no edema.?NEUROLOGIC:?alert and oriented.? Assessment: * Assessment: 1.?Encounter for other prepr ocedural examination - Z01.818 (Primary)?2.?Colon cancer screening - Z12.11? Overall, Ana appears quite well. I did recommend a followup colonoscopy further screening given his last exam being over 7 years ago and the somewhat limited prep on that day. We did review the rationale for the colonoscopy in regard to colorectal cancer prevention. Full consent is obtained for this, including risks of bleeding and perforation. The procedure will be done with monitored anesthesia care. He will take some extra Dulcolax 2 days before the procedure to hopefully allow for a better bowel prep. Ana was comfortable with this plan. Thank you again for allowing me to participate in Ana's care. I shall continue to keep you advised of his progress. Plan: * Treatment: * Procedure Codes:?3017F COLOR ECTAL CA SCREEN DOC [id number] TOBACCO [id number] BP SCR NOT PRFRM REC REASON NOS * Preventive Medicine:? ??Counseling:?Care goal follow-up plan:?Above Normal BMI Follow-up?Giving encouragement to exercise,?BMI management provided?Yes.? * Follow Up:?prn * * Sign off status: Completed true * Provider:?Martín Brown MD Date:? 024 Generated for Lui cervantes/Ayden/eTransmitting on:?11/22/2024 07:18 AM EDT History and Physical Notes * HPI (History of Present Illness) Category Sub-Category Detail Notes Category Not es incontinence I saw Ana in the office today for evaluation of colorectal cancer screening. I last saw Ana in 2014, at which time he underwent a negative screening colonoscopy. However, in reviewing the report of that procedure the prep with that colonoscopy was not complete as there was a lot of residual liquid. He currently feels very well. He enjoys a good appetite, without any significant heartburn or dysphagia. He denies any abdominal pain, jaundice, nor weight loss. His bowel movements have been regular and without any hematochezia nor melena. He denies any known family history of colon cancer. Examination Category Sub-Category Detail Notes Category Not es General Examination GENERAL APPEARANCE: pleasant , well [...]
[2024-11-22 07:23] LABS: MANUAL DIFF FLAG NO
[2024-11-22 07:25] LABS: Basophils Percent Auto 0.4 % (0-2); Eosinophils Absolute Auto 0.1 X10*3/uL (0.0-0.4); Eosinophils Percent Auto 1.9 % (0-4); Hematocrit 42.3 % (42.0-52.0); Hemoglobin 14.6 g/dl (14.0-18.0); Imm Gran Abs Auto 0.07 X10*3/uL (0.00-0.03); Imm Gran Pct Auto 0.9 % (0.0-0.4); Lymphocytes Absolute Auto 1.6 X10*3/uL (1.2-4.9); Lymphocytes Percent Auto 21.1 % (20-40); Mean Corpuscular HGB Conc 34.5 g/dl (31.0-36.0); Mean Corpuscular Hemoglobin 32.6 pg (27.0-33.0); Mean Corpuscular Volume 94.4 fL (80.0-98.0); Mean Platelet Volume 9.9 fL (9.4-12.4); Monocytes Absolute Auto 0.8 X10*3/uL (0.1-1.2); Monocytes Percent Auto 9.9 % (2-11); Neutrophils Percent Auto 65.8 % (45-73); Platelet Count 217 X10*3/uL (160-400); Red Blood Count 4.48 X10*6/uL (4.60-5.80); Red Cell Distribution Width 13.2 % (11.0-16.0); White Blood Count 7.5 X10*3/uL (4.8-10.8)
[2024-11-22 07:37] LABS: Alanine Aminotransferase 38 U/L (0-40); Albumin Level 4.2 g/dL (3.5-5.0); Alkaline Phosphatase 111 U/L (39-117); Anion Gap 13 (12-20); Aspartate Amino Transferase 29 U/L (5-37); Bilirubin Total 0.9 mg/dL (0.0-1.0); Blood Urea Nitrogen 9 mg/dL (9-16); C Reactive Protein 0.42 mg/dL (< or = 0.50); Calcium 9.1 mg/dL (8.4-10.2); Carbon Dioxide 28 mmol/L (22-29); Chloride 105 mmol/L (96-108); Creatinine Clr Calc Pharmacy 98.7; Estimated Glomerular Filt Rate > 60; Glucose Random 120 mg/dL (60-115); Potassium 4.1 mmol/L (3.3-5.1); Sodium 142 mmol/L (135-145); Total Protein 6.8 g/dL (6.5-8.0)
--- NOTE | 2024-11-22 07:44 | ED_ITS ---
HPI - Extremity Problem General Chief complaint: Extremity Injury, Upper Stated complaint: swollen right arm Time Seen by Provider: 11/22/24 07:44 Source: patient Mode of arrival: ambulatory Limitations: no limitations History of Present Illness ED Provider: HPI Narrative: 64-year-old male presenting with left forearm swelling, started 2 days ago when he was hammering his deck, he states the swelling on the forearm started right away, there were no bites associated, no new injury, denies IV drug use no fevers or chills, swelling is right over the forearm he is able to move his wrist and digits no sensory deficits no chest pain or shortness of breath no history of blood clots. Denies history of rheumatoid arthritis. He is left hand dominant. MD Complaint: extremity pain Related Data Home Medications ?Medication ?Instructions ?Recorded ?Confirmed famotidine 20 mg tablet (Pepcid) 20 mg PO DAILY 07/26/21 08/15/24 carvedilol 3.125 mg tablet 3.125 mg PO BID 05/15/24 08/15/24 Previous Rx's ?Medication ?Instructions ?Recorded atorvastatin 20 mg tablet 20 mg PO DAILY #90 tabs 01/27/24 gabapentin 300 mg capsule 300 mg PO TID #90 caps 07/11/24 amitriptyline 50 mg tablet 50 mg PO DAILY #60 tabs 10/03/24 lisinopril 10 mg tablet 10 mg PO DAILY #90 tabs 10/07/24 prednisone 20 mg tablet 40 mg (2 x 20 mg) PO DAILY 5 days 11/22/24 #10 tabs Allergies Allergy/AdvReac Type Severity Reaction Status Date / Time morphine [MORPHINE] Allergy Severe HIVES, rash Verified 11/22/24 06:54 Review of Systems 2 Constitutional: Constitutional: Reports as per HPI [facility] Past Medical History Medical History Hyperlipidemia Surgical History H/O shoulder surgery History of hip replacement History of surgery Family History Family History Father Diabetes Mother Diabetes Social History Social History Housing: Apartment Alcohol intake: current Alcohol intake frequency: a few times a week Alcohol type: beer and wine Patient Tobacco Use Status: Never used Tobacco Tobacco use type: Cigarette e-Cigarette/Vaping Use: Never Used Second Hand Smoke Exposure: No Substance Use Type: Marijuana Advance Directives: No Advance Directives Information Provided: No Do you have a plan to hurt others: No Plan service: No Current occupational status: disabled Cognitive needs: Yes (cane) Hearing needs: No Vision needs: Yes (glasses) Physical Exam 2 Vital Signs: Vital Signs: Last Vital Signs Temp 97.9 F 11/22/24 08:40 Pulse 59 11/22/24 08:40 Resp 16 11/22/24 08:40 BP 132/85 11/22/24 08:40 Pulse Ox 96 11/22/24 08:40 O2 Del Method Room Air 11/22/24 08:40 BMI result Body Mass Index 30.3 Const: Other: * Gen: ?Overall well-appearing patient * MSK: FROM, strength 5/5 all extremities, there is swelling over his distal forearm on the left side it is not involving the wrist, radial ulnar pulses +2, he has full range of motion in his hand is able to fully extend and flex radial ulnar median sensory motor intact, full range of motion of the elbow and the shoulder, right forearm exam is unremarkable * Skin: Warm, dry, intact, I do not appreciate any erythema, he has got an old scar over the lateral forearm * Neuro: ?Alert and oriented x3, moving upper and lower extremities symmetrically, no obvious facial asymmetry noted Medical Decision Making Medical Decision Making [facility] Narrative: 07:50 presenting with left forearm swelling localized to the distal forearm, wondering whether this is a muscular rupture, DVT, no evidence for arterial insufficiency, considered septic joint, inflammatory joint, infectious etiology this happened as he was hammering and there were no reports of bites and no physical exam consistent with that, we will add on inflammatory markers no leukocytosis, we will add on ultrasound to make sure there are no clots x-ray for any fractures calcifications, did not feel that aspiration of joint indicated at this time may start him on steroids and antibiotics depending on the workup. 09:22 workup has been reassuring, no inflammatory marker elevation nonfebrile, see my discharge instructions we will discharge home on steroids Admission/Observation Consideration of admission/observation: Escalation of care including admission/observation considered Lab Data [facility] Lab Attestation statement: I reviewed the patient's lab results. 11/22/24 07:20 11/22/24 07:20 Labs: Lab Results 11/22/24 Range/Units 07:20 WBC 7.5 (4.8-10.8) X10*3/uL RBC 4.48 L (4.60-5.80) X10*6/uL Hgb 14.6 (14.0-18.0) g/dl Hct 42.3 (42.0-52.0) % MCV 94.4 (80.0-98.0) fL MCH 32.6 (27.0-33.0) pg MCHC 34.5 (31.0-36.0) g/dl RDW 13.2 (11.0-16.0) % Plt Count 217 (160-400) X10*3/uL MPV 9.9 (9.4-12.4) fL Immature Gran % (Auto) 0.9 H (0.0-0.4) % Neut % (Auto) 65.8 (45-73) % Lymph % (Auto) 21.1 (20-40) % Bates % (Auto) 9.9 (2-11) % Eos % (Auto) 1.9 (0-4) % Baso % (Auto) 0.4 (0-2) % Lymph # (Auto) 1.6 (1.2-4.9) X10*3/uL Bates # (Auto) 0.8 (0.1-1.2) X10*3/uL Eos # (Auto) 0.1 (0.0-0.4) X10*3/uL Baso # (Auto) 0.0 (0.0-0.2) X10*3/uL Abs Immat Gran (auto) 0.07 H (0.00-0.03) X10*3/uL Absolute Neuts (auto) 5.0 (2.0-8.3) x10*3/uL Absolute Nucleated RBC 0.000 (0.0-0.012) X10*3/uL Nucleated RBC % (auto) 0.0 (0.0-0.2) /100WBC ESR 8 (0-15) MM/HR Sodium 142 (135-145) mmol/L Potassium 4.1 (3.3-5.1) mmol/L Chloride 105 (96-108) mmol/L Carbon Dioxide 28 (22-29) mmol/L Anion Gap 13 (12-20) BUN 9 (9-16) mg/dL Creatinine 0.81 (0.5-1.4) mg/dL Estim Creat Clear Calc 98.7 Estimated GFR > 60 Random Glucose 120 H (60-115) mg/dL Calcium 9.1 (8.4-10.2) mg/dL Total Bilirubin 0.9 (0.0-1.0) mg/dL AST 29 (5-37) U/L ALT 38 (0-40) U/L Alkaline Phosphatase 111 (39-117) U/L C-Reactive Protein 0.42 (< or = 0.50) mg/dL Total Protein 6.8 (6.5-8.0) g/dL Albumin 4.2 (3.5-5.0) g/dL Radiology Impression Discussion of test interpretation with radiology: I have reviewed the radiologist's reading. Radiologist Impression: Plain x-rays and ultrasound negative Discharge Plan Discharge Clinical Impression: Localized swelling of left forearm Patient Disposition: Home, Self-Care Additional Instructions: Evaluated with left forearm swelling, blood work, ultrasound, x-rays are all reassuring, based on the history I do not feel that this is related to an infection, maybe this is a rupture of the muscles typically these heal up or this is just inflammation, 1st dose of steroids in the emergency department, continue steroids starting tomorrow, aggressive icing with a big bag of ice, inability to move your wrist joint, spiking fevers, redness going up your arm come back to the ER. Take Tylenol for pain and I would also try to not overuse the joint until your symptoms improve. Prescriptions: New prednisone 20 mg tablet 40 mg PO DAILY 5 Days Qty: 10 0RF No Action atorvastatin 20 mg tablet 20 mg PO DAILY Qty: 90 3RF gabapentin 300 mg capsule 300 mg PO TID Qty: 90 2RF amitriptyline 50 mg tablet 50 mg PO DAILY Qty: 60 3RF lisinopril 10 mg tablet 10 mg PO DAILY Qty: 90 2RF famotidine [Pepcid] 20 mg tablet 20 mg PO DAILY carvedilol 3.125 mg tablet 3.125 mg PO BID Print Language: Croatian
[2024-11-22 08:23] LABS: Erythrocyte Sedimentation Rate 8 MM/HR (0-15)
--- NOTE | 2024-11-22 08:25 | PC.NURSE ---
Pt taken for ultrasound. Ambulated independently with steady gait.
[2024-11-22 08:40] VITALS: BP 132/85; PULSE 59; RESP 16; TEMP 36.6; O2SAT 96
[2024-11-22] MEDS: dexAMETHasone 2 MG TABLET 10 MG PO (09:44)
[2024-11-22 09:48] VITALS: BP 132/85; PULSE 59; RESP 16; TEMP 36.6; O2SAT 96
--- NOTE | 2024-11-22 09:48 | PC.NURSE ---
Left lower arm firm and swollen, unknown source per patient. educated on worsening symtoms and infection symtpoims
== END 2024-11-22 09:50 | disposition home or self-care (01) ==
PROVIDERS: Emergency Provider Emergency Medicine
DX: R60.0 Localized edema (principal); M79.602 Pain in left arm; Z79.899 Other long term (current) drug therapy
CPT/HCPCS: 36415; 73090; 73110; 80053; 85025; 85652; 86140; 93971; 99284; J8540

== ENCOUNTER → 2024-11-22 08:35 | Outpatient (BNV) | payer MEDICARE, MEDICAID, SELFPAY | PROVIDERS: Emergency Provider Emergency Medicine; Visit Provider Radiology Diagnostic Radiology | DX: R22.32 Localized swelling, mass and lump, left upper limb (principal) | CPT/HCPCS: 73090; 73110; 93971 ==

== ENCOUNTER 2025-03-26 08:15 | Emergency (ER) | payer MEDICARE, MEDICAID, SELFPAY ==
--- OUTSIDE RECORDS SUMMARY | 2024-01-01 03:30 | XMS_ITS ---
Author Organization [facility] Address [address] [place] [address] Care Team Providers Care Decating Machine Operator Name Role Phone Ivan Biggs MD Primary Care Provider Aleksandara Martín Bronson Unavailable [phone] REASON FOR VISIT screening Problems Problem Type SNOMED Code ICD Code Onset Dates Problem Status W/U Status Risk Notes Problem Diverticular disease of colon (014616990) Diverticulosis of large intestine without perforation or abscess without bleeding (K57.30) Active confirmed Encounters Encounter Location Date Provider Diagnosis [facility] [place] [address] [place], [place] [phone] 01/01/2024 Martín Brown Encounter for scre ening [...] * ANA LEIJADOB:1960 ( 64 yo M)Acc No.[id number]:01/01/2024 COLON WITH MAC Patient: ANA PADRON Provider: Celeste Brown MD :1960 A ge:63 Y S ex:Male Date:01/01/2024 Address:[address] [place] [address] [id number] Pcp:Ivan Biggs MD Subjective: * Chief Complaints: [...] MD Date: 0 01/01/2024 Generated for Lui cervantes/Ayden/Maximitting on: 0 03/26/2025 09:44 AM EDT
--- NOTE | ~2025-03-26 | XR_ITS ---
EXAMINATION: XR HIP, LEFT CLINICAL INFORMATION: Pain COMPARISON: 12/18/2018. TECHNIQUE: Two views of the left hip. FINDINGS: There has been a total left hip arthroplasty. Femoral, and acetabular components are intact, well seated, without evidence of periprosthetic fracture, loosening, or complication. The imaged pelvis is intact. There are no soft tissue abnormalities. XR/XR hip LT min 2V IMPRESSION: Total left hip arthroplasty without complication evident. Electronically signed by: Casey Fowler MD 03/26/2025 09:47 AM EDT
--- NOTE | ~2025-03-26 | XR_ITS ---
EXAMINATION: XR LUMBOSACRAL SPINE CLINICAL INFORMATION: Back pain COMPARISON: Lumbar spine MRI on August 29, 2008 TECHNIQUE: Three views of the lumbosacral spine. FINDINGS: Posterior fusion hardware at L4-L5-S1 appears intact. Disc spacer at L4-L5. No compression fracture. Small marginal osteophytes at multiple levels. Narrowing of L5-S1 disc space. No subluxation. Sacroiliac joints are intact. XR/XR lumbar spine 2-3V IMPRESSION: Mild multilevel degenerative changes. Electronically signed by: Oralia White MD 03/26/2025 09:49 AM EDT
[2025-03-26 08:16] VITALS: BP 160/86; PULSE 91; RESP 18; TEMP 37.1; O2SAT 98; BMI 28.2
--- NOTE | 2025-03-26 08:35 | ED.BACK ---
HPI - Back Pain/Injury General Chief Complaint: Back Pain/Injury Stated Complaint: back/ L hip pain Time Seen by Provider: 03/26/25 08:25 Source: patient Mode of arrival: ambulatory Limitations: no limitations History of Present Illness ED Provider: DR. Smith HPI Narrative: 64-year-old male came in for evaluation of low back/left hip pain x2 weeks patient was painting in his house with bending down when he stood up suddenly and started to have cramps and pain in lower back radiating to the left hip area pain has been on and off for 2 weeks worsening with exertion, no fever, no chills, no fall. Related Data Home Medications ?Medication ?Instructions ?Recorded ?Confirmed famotidine 20 mg tablet (Pepcid) 20 mg PO DAILY 07/26/21 08/15/24 carvedilol 3.125 mg tablet 3.125 mg PO BID 05/15/24 08/15/24 Previous Rx's ?Medication ?Instructions ?Recorded lisinopril 10 mg tablet 10 mg PO DAILY #90 tabs 10/07/24 prednisone 20 mg tablet 40 mg (2 x 20 mg) PO DAILY 5 days 11/22/24 #10 tabs amitriptyline 50 mg tablet 50 mg PO DAILY #60 tabs 03/24/25 atorvastatin 20 mg tablet 20 mg PO DAILY #90 tabs 03/24/25 gabapentin 300 mg capsule 300 mg PO TID #90 caps 03/24/25 cyclobenzaprine 10 mg tablet 10 mg PO TID PRN muscle spasm #10 03/26/25 tabs oxycodone 5 mg tablet 5 mg PO Q8H PRN pain #10 tabs 03/26/25 Allergies Allergy/AdvReac Type Severity Reaction Status Date / Time morphine (MORPHINE) Allergy Severe HIVES, rash Verified 03/26/25 08:17 Review of Systems Review of Systems: All other systems are reviewed and are negative Constitutional: Reports as per HPI and Reports no additional constitutional complaints Eyes: Reports as per HPI and Reports no additional eye complaints Reports system reviewed and no additional complaints, except as documented Cardiovascular: Reports as per HPI and Reports no additional cardiovascular complaints Respiratory: Reports as per HPI and Reports no additional respiratory complaints Gastrointestinal: Reports as per HPI and Reports no additional gastrointestinal complaints Genitourinary: Reports no additional female genitourinary complaints Musculoskeletal: Reports no additional musculoskeletal complaints Skin/Breast: Reports system reviewed and no additional complaints, except as docu Psychiatric: Reports no additional psychiatric complaints Endocrine: Reports no additional endocrine complaints Hematologic/Lymphatic: Reports no additional hematologic/lymphatic complaints Allergic/Immunologic: Reports no additional allergic/immunologic complaints Reports system reviewed and no additional complaints, except as documented and Reports Abnormal speech present [facility] Past Medical History Medical History Hyperlipidemia Surgical History H/O shoulder surgery History of hip replacement History of surgery Family History Family History Father Diabetes Mother Diabetes Social History Social History Housing: Apartment Alcohol intake: current Alcohol intake frequency: a few times a week Alcohol type: beer and wine Patient Tobacco Use Status: Never used Tobacco Tobacco use type: Cigarette e-Cigarette/Vaping Use: Never Used Second Hand Smoke Exposure: No Substance Use Type: Marijuana Advance Directives: No Advance Directives Information Provided: Yes service: No Current occupational status: disabled Cognitive needs: Yes (cane) Hearing needs: No Vision needs: Yes (glasses) Physical Exam Vital Signs: Vital Signs: Last Vital Signs Temp 98.7 F 03/26/25 08:16 Pulse 91 03/26/25 08:16 Resp 16 03/26/25 09:12 BP 160/86 H 03/26/25 08:16 Pulse Ox 98 03/26/25 08:16 O2 Del Method Room Air 03/26/25 08:16 BMI result Body Mass Index 28.2 Vital signs have been reviewed and appear to be correct. Blood pressure elevated. Heart rate normal. Respiratory rate normal. Temperature normal. Oxygen saturation normal. Appearance: Alert. Oriented X3. No acute distress. Head: Normal external exam. Normocephalic. Atraumatic. No Dowell signs noted. No raccoon eyes noted Eyes: PERRLA. EOMI. Conjunctiva and sclera normal. Eyelids normal. ENT: TM's Normal. Pharynx normal. Uvula midline. Moist mucous membranes. No trismus noted. No drooling noted. No muffled voice noted. Neck: Normal inspection. Neck supple. FROM. No adenopathy. Thyroid Normal. No meningeal signs. No neck mass noted. CVS: Normal heart rate and rhythm. Heart sound normal. No murmurs noted. Pulses normal throughout. Respiratory: No respiratory distress. Painless inspiration. Breath sounds normal. No wheezes/rales/rhonchi noted. Chest nontender. No accessory muscle usage noted or decreased air movement noted. Abdomen: Soft and nontender. Bowel sounds normal in all 4 quadrants. No distention noted. No organomegaly noted. No visible injury noted. Back: No CVA tenderness. Full range of motion noted. Skin: Skin warm and dry. Normal skin color. Normal skin turgor. No rashes/lesions/lacerations noted. Extremities: No lower extremity edema. Extremities exhibit normal range of motion. Extremities nontender. Neuro: Oriented X 3. Cranial nerve exam: II-XII are grossly intact No motor deficit. No sensory deficit. Reflexes normal. Course Reevaluation(s) Reevaluation #1: Back pain, left hip pain improving with pain medication in the ED. Normal neuro exam. Will discharge on oxycodone to be used PRN. Time: 10:04 Medications Administered Discontinued Medications Generic Name Dose Route Start Last Admin Trade Name Freq PRN Reason Stop Dose Admin Diazepam 2 mg 03/26/25 08:37 03/26/25 09:12 Diazepam 2 Mg Tablet PO 03/26/25 08:38 2 mg ONCE ONE Administration Hydromorphone HCl 2 mg 03/26/25 08:36 03/26/25 09:12 Hydromorphone Hcl 2 Mg/Ml Vial IM 03/26/25 08:37 2 mg ONCE ONE Administration Protocol Ketorolac Tromethamine 15 mg 03/26/25 08:36 03/26/25 09:12 Ketorolac Tromethamine 15 Mg/Ml Vial IM 03/26/25 08:37 15 mg ONCE ONE Administration Medical Decision Making Differential Diagnosis Differential Diagnoses: The differential diagnosis associated with the presentation includes (DJD left hip, lumbar spine DJD, neurovascularly intact, cauda equina syndrome, left hip fracture or dislocation.) Admission/Observation Consideration of admission/observation: Escalation of care including admission/observation considered Lab Data MDM Lab Attestation statement: I reviewed the patient's lab results. Independent Interpretation I performed an independent interpretation of an: Plain X-Ray (Lumbar spine/left hip x-ray: No acute pathology.) Radiology Impression Discussion of test interpretation with radiology: I have reviewed the radiologist's reading. Discharge Plan Discharge Clinical Impression: Strain of lumbar region Patient Disposition: Home, Self-Care Instructions: Muscle Strain (ED) Prescriptions: New oxycodone 5 mg tablet 5 mg PO Q8H PRN (Reason: pain) Qty: 10 0RF Rx Instructions: Partial Fill upon patient request. cyclobenzaprine 10 mg tablet 10 mg PO TID PRN (Reason: muscle spasm) Qty: 10 0RF No Action lisinopril 10 mg tablet 10 mg PO DAILY Qty: 90 2RF atorvastatin 20 mg tablet 20 mg PO DAILY Qty: 90 3RF amitriptyline 50 mg tablet 50 mg PO DAILY Qty: 60 2RF gabapentin 300 mg capsule 300 mg PO TID Qty: 90 2RF prednisone 20 mg tablet 40 mg PO DAILY 5 Days Qty: 10 0RF famotidine [Pepcid] 20 mg tablet 20 mg PO DAILY carvedilol 3.125 mg tablet 3.125 mg PO BID Print Language: Namibian
[2025-03-26 09:12] VITALS: RESP 16
--- OUTSIDE RECORDS SUMMARY | 2025-03-26 09:44 | XMS_ITS | Encounter Summary ---
Author Organization [employer] Address [address] [facility] [address] [facility] [address] [place] [address] Care Team Providers Care Hobbies And Crafts Sales Representative Name Role Phone Unavailable Primary Care Provider Unavailabl e Reason for Visit * Reason Onset Date Comments DR JACK PT 01/15/2025 Encounter Details Date Type Department Care Team (Late st Contact Info) Description 01/15/2025 Telephone [facility] [address] [place], [place] [phone] Andrae Jack DDS [address] [place], [place] [phone] DR JACK PT Social History Tobacco Use Types Packs/Day Years [...] AM EDT documented as of this encounter Miscellaneous Notes * Telephone Encounter - Kenny De La Torre - 01/15/2025 2:16 PM EDT PT called in asking for script to be sent to pharmacy. Please let pt know when script is sent. Thank you documented in this encounter Plan of Treatment Not on file documented as of this encounter Visit Diagnoses Not on filedocumented in this encounter
--- OUTSIDE RECORDS SUMMARY | 2025-03-26 09:44 | XMS_ITS | Clinical Summary ---
Author Organization [employer] Address [address] [facility] [address] [place] [address] Care Team Providers Care Accounting Officer Name Role Phone Unavailable Primary Care Provider [...] mg by mouth 3 times daily. Active acetaminophen (Tylenol 8 Hour) 650 MG ER tablet Take 1 tablet (650 mg) by mouth every 8 (eight) hours if needed for mild pain. Do not crush, chew, or split. 20 tablet 5 Active ibuprofen 600 MG tablet Take 1 tablet (600 mg) by mouth 3 times daily. 20 tablet 5 Active Active Problems Problem Noted Date Diagnosed Date Pain 01/15/2025 Periodontal disease 08/14/2024 Anxiety 07/08/2024 Depressive disorder 07/08/2024 Gastroesophageal reflux disease 07/08/2024 Hyperlipidemia 07/08/2024 Hypertension 07/08/2024 Obesity 07/08/2024 Osteoarthritis 07/08/2024 Prediabetes 07/08/2024 Encounters Date Type Department Care Team Description 02/06/2025 Telephone [facility] [address] [place] [address] Emmanuel Arnlod MD 01/29/2025 Telephone [facility] [address] [place] [address] Andrae Jack DDS 01/21/2025 Telephone [facility] [address] [facility] [address] Emmanuel Arnold MD 01/17/2025 Telephone [facility] [address] [place] [address], [place] [address] Emmanuel Arnold MD 01/15/2025 11:30 AM EDT Office Visit [facility] [address] [place] [address] Andrae Jack DDS Pain (Primary Dx); Periodontal disease 01/15/2025 Telephone [facility] [address] [facility] [address] BOLANO PT 01/14/2025 Telephone [facility] [address] [place] [phone] Emmanuel Arnold MD from Last 3 Months Immunizations Immunization Administration Dates Next Due Moderna Covid-19 Vaccine [...] Panel 1961 SDOH Screening 1961 Sigmoidoscopy 1961 Disability Screening 1961 Alcohol/Substance Use Screening 1973 Hepatitis C Screening 11/01/1979 Dental Prophylaxis 08/14/2021 02/10/2021, 0 08/31/2017, 12/22/2016, Additional history exists Dental X-Ray: Bitewings 02/11/2022 02/11/20 21, 09/22/2017, 05/25/2016 Zoster Vaccines (2 of 2) 06/30/2024 05/05/2024 Dental Oral Exam 01/27/2025 07/29/2024, 05/2021, 09/22/2017, Additional history exists Influenza Vaccine (#1) 2025 , 05/11/2023, 06/11/2021 Tobacco Screening 01/15/2026 01/15/2025 DTaP/Tdap/Td Vaccines (2 - Td or Tdap) 06/09/2026 06/09/2016 Dental X-Ray: Full Mouth 07/17/2027 025, 02/10/2021, 05/25/2016 RSV Patients and Patients Aged 60 years or older (1 - 1-dose 75+ series) 2036 COVID-19 Vaccine Completed 04/01/2024, 08/2022, 07/29/2021, Additional history exists Pneumococcal Vaccine: 50+ Years Completed 05/05/2024 HIB [...] patient's age to complete this topic Meningococcal B Vaccine Aged Out No l onger eligible based on patient's age to complete [...] PRESENTATION, DETAILED AND EXTENSIVE TREATMENT PLANNING Routine 01/15/2025 11:30 AM EDT 8 EXTRACTION, ERUPTED TOOTH OR EXPOSED ROOT (ELEVATION/FORCEPS REMOVAL) Routine 01/15/2025 11:30 AM EDT PERIODIC ORAL EVALUATION - ESTABLISHED PATIENT Routine 07/29/2024 8:00 AM EST Encounter for dental examination Chronic periodontal disease Dental calculus Dental plaque PANORAMIC RADIOGRAPHIC IMAGE Routine 07/16/2024 11:30 AM EST PROPHYLAXIS - ADULT Routine 02/10/2021 1 2:00 AM EDT INTRAORAL - COMPLETE SERIES OF RADIOGRAPHIC IMAGES Routine 02/10/2021 12:00 AM EDT from Last 3 Months or Most Recently Relevant to Health Maintenance Insurance [facility] MEDICA[facility] STAND ADULT
--- OUTSIDE RECORDS SUMMARY | 2025-03-26 09:44 | XMS_ITS | Patient Health Record ---
Author Organization [facility] Address [address] [place] [address] Care Team Providers Care Warp Trucker Name Role Phone Kalyan DIAZ, Ivan Primary Care Provider Martín Whiteside [phone] Allergies Allergen (clinical drug ingredient) Drug/Non Drug Allergy documented on EMR Reaction Allergy Type Onset Date Status morphine Morphine Unknown Drug Allergy Active Reason For Referral No Information Medications Medication SIG (Take, Route, Frequency, Duration) [...] TIMES A DAY Oral for 30 Active Problems Problem Type SNOMED Code ICD Code Onset Dates Problem Status W/U Status Risk Notes Problem Colon cancer screening (450499987) Colon cancer screening (Z12.11) Active confirmed Problem Pre-procedure evaluation check (615170945) Encounter for other preprocedural examination (Z01.818) Active confirmed Problem Diverticular disease of colon (608497513) Diverticulosis of large intestine without perforation or abscess without bleeding (K57.30) Active confirmed Plan Of Treatment Pending Test Test Name Order Date Pathology 01/01/2024 Future Test Test Name Order Date COLONOSCOPY 07/17/2014 COLONOSCOPY 09/26/2023 Insurance Providers Payer Name Payer Address Payer Phone Subscriber Number Group Number Insured Name Patient Relationship to Insured Coverage Start Date Coverage End Date [employer] [address] RASHAD TAO [id number] ANA LEIJA Self - patient is the insured Medical (General) History Medical History History ICD Code Denies [place],DM,CVA,Lung disease,renal dise ase Hyperlipidemia Anxiety/sleep disorder--takes Amitryptil blake Hypertension Neuropathy in feet-takes gabapentin Arthritis in back, hands, neck, shoulder s, etc Negative screening colonoscopy in 2014, but with a limited prep Surgical History Surgery Date(Month/Year) L4/L5 Back surgery C-spine surgery Shoulder surgery 2010 Left hip replacement 2020
--- OUTSIDE RECORDS SUMMARY | 2025-03-26 09:44 | XMS_ITS | Encounter Summary ---
Author Organization [facility] Address [address] [facility] [address] [place] [address] Care Team Providers Care Data Visualization Developer Name Role Phone Unavailable Primary Care Provider Unavailabl e Encounter Details Date Type Department Care Team (Latest Contact Info) Description 02/10/2021 Abstract [facility] CONVERSIONS Dental, Provider, DDS Social History Tobacco [...]
[2025-03-26 10:28] VITALS: BP 160/76; PULSE 91; RESP 16; TEMP 37.1; O2SAT 98
== END 2025-03-26 10:28 | disposition home or self-care (01) ==
PROVIDERS: Emergency Provider Emergency Medicine
DX: M54.50 Low back pain, unspecified (principal); M25.552 Pain in left hip; Z79.899 Other long term (current) drug therapy
CPT/HCPCS: 72100; 73502; 96372; 99284; J1171; J1885

== ENCOUNTER → 2025-03-26 08:36 | Outpatient (BNV) | payer MEDICARE, MEDICAID, SELFPAY | PROVIDERS: Emergency Provider Emergency Medicine; Visit Provider Radiology Diagnostic Radiology | DX: M25.552 Pain in left hip (principal); M54.50 Low back pain, unspecified; Z96.642 Presence of left artificial hip joint | CPT/HCPCS: 72100; 73502 ==

== ENCOUNTER 2025-05-15 11:27 | Outpatient (AMB) | payer MEDICARE, MEDICAID, SELFPAY ==
--- OUTSIDE RECORDS SUMMARY | 2024-01-01 02:30 | XMS_ITS ---
Author Organization [facility] Address [address] [place] [address] Care Team Providers Care Marionette Performer Name Role Phone Ivan Biggs MD Primary Care Provider Aleksandara Martín Bronson Unavailable [phone] REASON FOR VISIT screening Problems Problem Type SNOMED Code ICD Code Onset Dates Problem Status W/U Status Risk Notes Problem Diverticular disease of colon (858610409) Diverticulosis of large intestine without perforation or abscess without bleeding (K57.30) Active confirmed Encounters Encounter Location Date Provider Diagnosis [facility] [place] Outpatient [address], [place] [phone] 01/01/2024 Martín Brown Encounter for scre ening colonoscopy Z12.11 ; Colon polyps K63.5 ; Diverticulosis of large intestine without perforation or abscess without bleeding K57.30 and Other hemorrhoids K64.8 Assessments Encounter Date Diagnosis (ICD Code) Assessment Notes Treatment Notes Treatment Clinical Notes Section Notes 01/01/2024 Encounter for screening colonoscopy (ICD-10 - Z12.11) 01/01/2024 Colon polyps (ICD-10 - K63.5) 01/01/2024 Diverticulosis of large intestine without perforation or abscess without bleeding (ICD-10 - K57.30) 01/01/2024 Other hemorrhoids (ICD-10 - K64.8) Plan Of Treatment No Information Progress Notes * ANA LEIJADOB:1960 ( 64 yo M)Acc No.[id number]:01/01/2024 COLON WITH MAC Patient: ANA PADRON Provider: Celeste Brown MD :1960 A ge:63 Y S ex:Male Date:01/01/2024 Address:[address] [place] [address] [id number] Pcp:Ivan Biggs MD Subjective: * Chief Complaints: * 1 . Screening. * Medical History: Objective: * Vitals: Assessment: * Assessment: 1. E ncounter for screening colonoscopy - Z12.11 (Primary) 2 . C olon polyps - K63.5 3 . D iverticulosis of large intestine without perforation or abscess without bleeding - K57.30 4 . O ther hemorrhoids - K64.8 Plan: * Treatment: * Procedure Codes: 4 5385 LESION REMOVAL COLONOSCOPY, Modifiers: 33 * * The named appointment provid er may or may not be the originator of this progress note, and it is not deemed complete until electronically signed by the appointment provider. Sign off status: Pending * Provider: Celeste Brown MD Date: 0 01/01/2024 Generated for Lui cervantes/Ayden/Harjeetsmitting on: 07/15/2024 02:41 PM EST
[2025-05-15 11:38] VITALS: BP 136/88; PULSE 76; O2SAT 96; BMI 29.4
--- NOTE | 2025-05-15 11:38 | MHC.PC.OV ---
Vital Signs 05/15/25 11:38 Height 5 ft 7 in Weight 188 lb BMI 29.4 BP 136/88 Blood Pressure Location Lt brachial Position Sitting Pulse 76 Pulse Source Pulse Oximeter Pulse Oximetry (%) 96 Oxygen Delivery Method Room Air Intake Visit Reasons: Transfer Care from Dr. Biggs [facility] f/u Xray Tech Required: No Accompanied by: Self / Same As Patient Allergies morphine (MORPHINE) Allergy (Severe, Verified 05/15/25 12:24) HIVES, rash Medication List - Last Reconciled 05/18/25 by Tu Tyler MD amitriptyline 50 mg PO DAILY atorvastatin 20 mg PO DAILY carvedilol 3.125 mg PO BID cyclobenzaprine 10 mg PO TID PRN famotidine (Pepcid) 20 mg PO DAILY gabapentin 300 mg PO TID lisinopril 10 mg PO DAILY oxycodone 5 mg PO Q8H PRN Tobacco use date assessed: 05/15/25 Dental Screening Dental Screen Date: 05/15/25 Did you have a dental visit in the last 12 months?: Yes Did you have a dental problem in the last 6 months where you did not have access to dental care?: No Was dental information given to patient?: Patient has dentist HPI Transfer Care from Dr. Biggs [facility] f/u HPI Details Patient comes in today for his follow-up visit - is transferring over from Dr. Biggs, who retired from the practice earlier this year Patient states that he feels okay He denies any headaches or dizziness Denies any chest pains, no increased shortness of breath No nausea/vomiting, no abdominal pain No change in bowel habits noted He has no follow-up labs done recently - they were last done back in August 2024 during patient's last appointment with Dr. Biggs [facility] Medical History (Updated 05/18/25 @ 05:37 by Tu Tyler MD) Overweight (BMI 25.0-29.9) GERD without esophagitis Lumbar degenerative disc disease Essential hypertension Pure hypercholesterolemia Surgical History H/O shoulder surgery History of hip replacement History of surgery Family History Father Diabetes Mother Diabetes Social History (Updated 05/18/25 @ 05:37 by Tu Tyler MD) Housing: Apartment Alcohol intake: current Alcohol intake frequency: a few times a week Alcohol type: beer and wine Patient Tobacco Use Status: Never used Tobacco e-Cigarette/Vaping Use: Never Used Second Hand Smoke Exposure: No Substance Use Type: Marijuana service: No Current occupational status: disabled Cognitive needs: Yes Hearing needs: No Vision needs: Yes Questionnaire PHQ-9 Over the last 2 weeks, how often have you been bothered by any of the following problems? 1. Little interest or pleasure in doing things: several days 2. Feeling down, depressed, or hopeless: several days 3. Trouble falling or staying asleep, or sleeping too much: several days 4. Feeling tired or having little energy: several days 5. Poor appetite or overeating: several days 6. Feeling bad about yourself - or that you are a failure or have let yourself or your family down: several days 7. Trouble concentrating on things, such as reading the newspaper or watching television: several days 8. Moving or speaking so slowly that other people could have noticed. Or the opposite - being so fidgety or restless that you have been moving around a lot more than usual: not at all 9. Thoughts that you would be better off or of hurting yourself in some way: not at all Total score: 7 Depression Screening Interpretation: Positive Depression Screening Follow-up: Follow-up Visit Requested Depression Screening Done: Yes 10638 - PHQ-9 Billing: Yes Source: Developed by Drs. Martín Castro, Swapna Sinclair, Dougie Flores and colleagues, with an educational luis from [employer]. Thrive Questionnaire Date Thrive assessed: 05/15/25 I am a: Patient What is your living situation today?: I have a steady place to live Within the past 12 months, did the food you bought not last and you didn't have the money to get more?: Never true Within the past 12 months, did you worry whether your food would run out before you got money to buy more?: Never true Do you have trouble paying for medicines?: No Do you have trouble getting transportation to medical appointments?: No Do you have trouble paying your heating and electricity bill?: No Do you have trouble taking care of your child, family member or friend?: No Do you have trouble with day-to-day activities such as bathing, preparing meals, shopping, managing finances, etc.?: Yes Are you currently unemployed and looking for a job?: No Are you interested in more education?: No Please select the resources that you would like help with: Utilities Currently or been in a relationship where the following occur: No concerns reported THRIVE Score: 0 AUDIT C Alcohol Use Questionnaire (AUDIT-C) 1. How often do you have a drink containing alcohol?: 2-3 times a week 2. How many drinks containing alcohol do you have on a typical day when you are drinking?: 1 or 2 3. How often do you have six or more drinks on one occasion?: Less than monthly Total Score: 4 Score Reviewed/Action Taken: Yes ALISSON-7 AMB Questionnaire ALISSON-7 Date ALISSON - 7 assessed: 05/15/25 Feeling nervous, anxious, or on edge: 0 = Not at all Not being able to stop or control worryin = Not at all Worrying too much about different things: 2 = More than half the days Trouble relaxin = More than half the days Being so restless that it is hard to sit still: 3 = Nearly every day Becoming easily annoyed or irritable: 1 = Several days Feeling afraid as if something awful might happen: 3 = Nearly every day Total ALISSON-7 score (0-4 normal; 5-9 mild; 10-14 moderate; 15-21 severe): 11 Source: Developed by Drs. Martín Castro, Swapna Sinclair, Dougie Flores and colleagues, with an educational luis from [employer]. Review of Systems Const Denies chills, Reports fatigue, Denies fever(s) and Denies headache(s) ENT Denies dysphagia, Denies dizziness, Denies otalgia, Denies headache(s), Denies neck pain, Denies odynophagia and Denies sore throat Card Denies chest pain, Denies palpitations and Denies dyspnea Resp Denies cough and Denies dyspnea GI Denies abdominal pain, Denies constipation, Denies dysphagia, Denies heartburn, Denies diarrhea, Denies nausea, Denies odynophagia and Denies vomiting Denies difficulty urinating, Denies dysuria, Denies nocturia and Denies urinary frequency Musc Reports back pain (over the lower back - chronic) and Denies neck pain Skin/Breast Denies rash Neuro Denies dizziness and Denies headache(s) Endo Reports fatigue and Denies palpitations Physical exam (Primary Care) Vital Signs: Last Vital Signs Pulse 76 05/15/25 11:38 BP 136/88 05/15/25 11:38 Pulse Ox 96 05/15/25 11:38 Oxygen Delivery Method Room Air 05/15/25 11:38 BMI result Body Mass Index 29.4 Tobacco/Smoking Status: Tobacco use Status Tobacco use date assessed 05/15/25 05/15/25 11:40 Patient Tobacco Use Status Never used Tobacco 05/15/25 11:40 Tobacco use type Cigarette 05/15/25 11:40 e-Cigarette/Vaping Use Never Used 05/15/25 11:40 PHQ-9: PHQ-9 Score PHQ-9: Total score 7 05/15/25 12:26 Depression Screening Interpretation: Positive Depression Screening Follow-up: Follow-up Visit Requested Thrive Assessment: Date of Thrive Assessment Date Thrive assessed 05/15/25 05/15/25 11:41 Currently or been in a relationship where the following occur: No concerns reported Const General: no acute distress and alert HENMT Ears: TM's normal bilaterally and EAC's normal Throat: Yes posterior oropharynx normal and Yes tonsils normal (no TP congestion) Neck Neck: Yes supple and No lymphadenopathy Thyroid: Thyroid normal Resp Auscultation: clear to auscultation bilaterally, no rales and no wheezes Cardio Rate: regular rate Rhythm: regular rhythm Heart sounds: no murmurs GI Palpation (GI): Soft to palpation and nontender Auscultation: normal bowel sounds General: Yes no CVA tenderness Back/Spine/Pelvis Back: no CVA tenderness Thoracic/Lumbar Spine: lumbar spinal tenderness Skin Rashes: no rashes Extrem General: Yes no clubbing, cyanosis or edema Coding Level of Care Code Est Pt Level 4 (73670) Diagnoses Pure hypercholesterolemia E78.00 Essential hypertension I10 Lumbar degenerative disc disease M51.36 GERD without esophagitis K21.9 Overweight (BMI 25.0-29.9) E66.3 Additional Codes PHQ-9 - 72355 - PHQ-9 Billing: Yes ([id number]) Assessment & Plan Assessment & Plan (1) Pure hypercholesterolemia: Code(s): E78.00 - Pure hypercholesterolemia, unspecified Category: Medical Plan: Patient has no follow-up labs done recently and his cholesterol levels were last checked back in August 2024 Reinforced low-cholesterol diet Continue Atorvastatin 20 mg QD Will have him recheck his labs and fasting lipids in 3 months for follow-up (2) Essential hypertension: Code(s): I10 - Essential (primary) hypertension Category: Medical Plan: Reinforced low-sodium diet - goal of systolic BP of 120 mm or less Continue Carvedilol 3.125 mg BID and Lisinopril 10 mg QD (3) Lumbar degenerative disc disease: Code(s): M51.36 - Other intervertebral disc degeneration, lumbar region Category: Medical Plan: Reinforced activity and weight-lifting restrictions Lumbar spine x-rays done a couple of months ago in March 2025 revealed (+) mild multilevel degenerative changes Continue Gabapentin 300 mg TID and Cyclobenzaprine 10 mg TID PRN (4) GERD without esophagitis: Code(s): K21.9 - Gastro-esophageal reflux disease without esophagitis Category: Medical Plan: Dietary restrictions reinforced Continue Famotidine 20 mg QD PRN (5) Overweight (BMI 25.0-29.9): Code(s): E66.3 - Overweight Category: Medical Plan: Reinforced diet/exercise as tolerated/lose weight although patient's activity level is sometimes limited by lower back issues Plan Follow up in 3 months Orders: Orders TSH reflex Free T4 3 Months E78.00 - Pure hypercholesterolemia, unspecified UA CC w/rflx Micro + Cult 3 Months R30.0 - Dysuria Vitamin D 25-OH Total 3 Months E55.9 - Vitamin D deficiency, unspecified Complete Blood Count Auto Diff 3 Months D64.9 - Anemia, unspecified Comprehensive [place]. Panel Fast 3 Months E78.00 - Pure hypercholesterolemia, unspecified Lipid Panel 3 Months E78.00 - Pure hypercholesterolemia, unspecified Medications: Discontinued oxycodone Partial Fill upon patient request. Discontinued Reason: Patient Completed Course 5 mg PO Q8H PRN 10 tabs 0RF pain
--- OUTSIDE RECORDS SUMMARY | 2025-05-15 14:42 | XMS_ITS | Patient Health Record ---
Author Organization [facility] Address [address] [place] [address] Care Team Providers Care Human Resources Professional Name Role Phone Kalyan DIAZ, Ivan Primary Care Provider Martín Whiteside [phone] Allergies Allergen (clinical drug ingredient) Drug/Non Drug Allergy documented on EMR Reaction Allergy Type Onset Date Status morphine Morphine Unknown Drug Allergy Active Reason For Referral No Information Medications Medication SIG (Take, Route, Frequency, Duration) Notes Start Date End Date Status Pepcid 20 MG 1 tablet at bedtime as needed Orally Once a day; Duration: 30 day(s) Active Atorvastatin Calcium 20 MG TAKE 1 TABLET BY MOUTH EVERY DAY Oral; Duration: 90 Active Lisinopril 20 MG 1 tablet Orally Once a day Active Amitriptyline HCl 50 MG 1 tablet at bedt christiana Orally Once a day Active Aleve PRN Active Gabapentin 300 MG TAKE 1 CAPSULE BY MO UTH THREE TIMES A DAY Oral; Duration: 30 Active Problems Problem Type SNOMED Code ICD Code Onset Dates Problem Status W/U Status Risk Notes Problem Colon cancer screening (216647297) Colon cancer screening (Z12.11) Active confirmed Problem Pre-procedure evaluation check (060998368) Encounter for other preprocedural examination (Z01.818) Active confirmed Problem Diverticular disease of colon (588357891) Diverticulosis of large intestine without perforation or abscess without bleeding (K57.30) Active confirmed Plan Of Treatment Pending Test Test Name Order Date Pathology 01/01/2024 Future Test Test Name Order Date COLONOSCOPY 07/17/2014 COLONOSCOPY 09/26/2023 Insurance Providers Payer Name Payer Address Payer Phone Subscriber Number Group Number Insured Name Patient Relationship to Insured Coverage Start Date Coverage End Date [facility] [address] [place] [id number] ANA LEIJA Self - patient is the insured Medical (General) History Medical History History ICD Code Denies MT,DM,CVA,Lung disease,renal dise ase Hyperlipidemia Anxiety/sleep disorder--takes Amitryptil blake Hypertension Neuropathy in feet-takes gabapentin Arthritis in back, hands, neck, shoulder s, etc Negative screening colonoscopy in 2014, but with a limited prep Surgical History Surgery Date(Month/Year) L4/L5 Back surgery C-spine surgery Shoulder surgery 2010 Left hip replacement 2020
--- OUTSIDE RECORDS SUMMARY | 2025-05-15 14:42 | XMS_ITS | Clinical Summary ---
Author Organization [facility] [facility] Address [address] [place] [address] Care Team Providers Care Shingle Trimmer Name Role Phone Unavailable Primary Care Provider [...] 07/08/2024 Obesity 07/08/2024 Osteoarthritis 07/08/2024 Prediabetes 07/08/2024 Immunizations Immunization Administration Dates Next Due Moderna [...] 01/27/2025 07/29/2024, 05/2021, 09/22/2017, Additional history exists COVID-19 Vaccine ( season) 2025 04/01/2024, 08/05/2022, 07/29/2021, Additional history exists Influenza Vaccine (#1) 2025 , 05/11/2023, 06/11/2021 Tobacco Screening 01/15/2026 01/15/2025 DTaP/Tdap/Td Vaccines (2 - Td or Tdap) 06/09/2026 06/09/2016 Dental X-Ray: Full Mouth 07/17/2027 025, 02/10/2021, 05/25/2016 RSV Patients and Patients Aged 60 years or older (1 - 1-dose 75+ series) 2036 Pneumococcal Vaccine: 50+ Years Completed 05/05/2024 HIB [...] this topic Meningococcal Vaccine Aged Out No kaerem jessie eligible based on patient's age to [...] Most Recently Relevant to Health Maintenance Insurance [facility] MEDICAID STAND ADULT
--- OUTSIDE RECORDS SUMMARY | 2025-05-15 14:42 | XMS_ITS | Encounter Summary ---
Author Organization [facility] Address [address] [place] [address] Care Team Providers Care Soil Field Technician Name Role Phone Unavailable Primary Care Provider Unavailabl e Reason for Visit * Reason Onset Date Comments DR JACK PT 01/15/2025 Encounter Details Date Type Department Care Team (Late st Contact Info) Description 01/15/2025 Telephone [facility] [address], [place] [phone] Andrae Jack, LAZAROS [address], [place] [phone] DR JACK PT Social History Tobacco Use [...]
--- OUTSIDE RECORDS SUMMARY | 2025-05-15 14:42 | XMS_ITS | Encounter Summary ---
Author Organization [employer] [facility] Address [address] [place] [address] Care Team Providers Care Breaker Boss Name Role Phone Unavailable Primary Care Provider Unavailabl e Encounter Details Date Type Department Care Team (Latest Contact Info) Description 02/10/2021 Abstract [facility] CONVERSIONS Dental, Provider, DDS Social History [...]
== END 2025-05-15 12:32 | disposition home or self-care (01) ==
LOC: HO.HMCH 11:28
PROVIDERS: PCP Internal Medicine; Visit Provider Internal Medicine
DX: E78.00 Pure hypercholesterolemia, unspecified (principal); I10 Essential (primary) hypertension; M51.369 Other intervertebral disc degeneration, lumbar region without mention of lumbar back pain or lower extremity pain; K21.9 Gastro-esophageal reflux disease without esophagitis; E66.3 Overweight

== ENCOUNTER → 2025-05-15 11:27 | Outpatient (BNVA) | payer MEDICARE, MEDICAID, SELFPAY | PROVIDERS: PCP Internal Medicine; Visit Provider Internal Medicine | DX: I10 Essential (primary) hypertension (principal); E78.00 Pure hypercholesterolemia, unspecified; M51.369 Other intervertebral disc degeneration, lumbar region without mention of lumbar back pain or lower extremity pain; K21.9 Gastro-esophageal reflux disease without esophagitis; E66.3 Overweight; Z68.29 Body mass index [BMI] 29.0-29.9, adult | CPT/HCPCS: 96127; 99212 ==